=== PATIENT | male | born 1960 | race Caucasian/White ===

== ENCOUNTER 2017-06-16 13:39 | Emergency (ER) | payer OTHER ==
[2017-06-16 13:54] VITALS: BP 120/89
[2017-06-16] MEDS ORDERED: TRAMADOL HCL 50 MG TABLET PO ONE (14:33)
[2017-06-16 14:56] LABS: ABSOLUTE BASOPHILS # (AUTO) 0.1 10^3/uL (0.0-0.2); ABSOLUTE EOSINOPHILS # (AUTO) 0.4 10^3/uL (0.0-0.6); ABSOLUTE LYMPHOCYTES (AUTO) 1.7 10^3/uL (0.5-4.7); ABSOLUTE MONOCYTES (AUTO) 1.1 10^3/uL (0.1-1.4); ABSOLUTE NEUT (AUTO) 8.7 10^3/uL (1.7-8.2); BASOPHILS % (AUTO) 1.2 % (0-2); EOSINOPHILS % (AUTO) 3.6 % (0-6); HEMATOCRIT 41.3 % (37.9-51.0); HEMOGLOBIN 13.4 g/dL (13.5-17.0); HGB HCT DIFFERENCE -1.1; LYMPHOCYTES % (AUTO) 14.2 % (13-45); MEAN CORPUSCULAR HEMOGLOBIN 26.3 pg (27.0-33.4); MEAN CORPUSCULAR HGB CONC 32.4 g/dL (32.0-36.0); MEAN CORPUSCULAR VOLUME 81 fl (80-97); RED BLOOD COUNT 5.11 10^6/uL (4.35-5.55); RED CELL DISTRIBUTION WIDTH 17.6 % (11.5-14.0); WHITE BLOOD COUNT 12.1 10^3/uL (4.0-10.5)
[2017-06-16 15:13] LABS: ALANINE AMINOTRANSFERASE 24 U/L (21-72); ALBUMIN 4.3 g/dL (3.5-5.0); ALKALINE PHOSPHATASE 104 U/L (38-126); ANION GAP 13 (5-19); ASPARTATE AMINO TRANSFERASE 18 U/L (17-59); BILIRUBIN,DIRECT 0.2 mg/dL (0.0-0.4); BILIRUBIN,TOTAL 0.6 mg/dL (0.2-1.3); BLOOD UREA NITROGEN 36 mg/dL (7-20); CALCIUM 9.3 mg/dL (8.4-10.2); CARBON DIOXIDE 30 mmol/L (22-30); CHLORIDE 103 mmol/L (98-107); CREATININE RESULT 1.51 mg/dL (0.52-1.25); GLUCOSE 77 mg/dL (75-110); POTASSIUM 5.4 mmol/L (3.6-5.0); SODIUM 145.9 mmol/L (137-145); TOTAL PROTEIN 7.5 g/dL (6.3-8.2)
--- NOTE | 2017-06-16 15:36 | ER Document Report ---
ED Blood Pressure Problem - General Chief Complaint: Low Blood Pressure Stated Complaint: BLOOD PRESSURE ISSUES Time Seen by Provider: 06/16/17 14:33 Mode of Arrival: Ambulatory Information source: Patient Notes: Patient states that he comes in for 2 reasons. He states that he took his blood pressure at home and that it was 90 systolic. He also states that he has been having some pain in his feet bilaterally. He states he does not have any pain medication at home. He states the pain in his feet is constant and a burning sensation. He states that it is worse with movement and better with rest. It does not radiate. He states he has had some mild weakness. TRAVEL OUTSIDE OF THE [place] IN LAST 30 DAYS: No - Related Data Allergies/Adverse Reactions: lisinopril Allergy (Verified 06/16/17 13:40) simvastatin [From Zocor] Allergy (Verified 06/16/17 13:40) Home Medications: Current Home Medications Atorvastatin Calcium [Lipitor] 80 mg PO QHS 06/16/17 [History] Carvedilol [Carvedilol] 1 tab PO BID 06/16/17 [History] Losartan Potassium [Losartan Potassium] 1 tab PO DAILY 06/16/17 [History] Potassium Chloride [Klor-Con M20] 1 tab PO DAILY 06/16/17 [History] Pregabalin [Lyrica] 1 tab PO BID 06/16/17 [History] Spironolactone [Spironolactone] 1 tab PO DAILY 06/16/17 [History] Ticagrelor [Brilinta] 1 tab PO BID 06/16/17 [History] Torsemide [Demadex 20 mg Tablet] 1 tab PO ASDIR PRN 06/16/17 [History] Past Medical History - General Information source: Patient - Social History Smoking Status: Former Smoker Chew tobacco use (# tins/day): No Frequency of alcohol use: None Drug Abuse: None Family History: Reviewed & Not Pertinent Patient has suicidal ideation: No Patient has homicidal ideation: No - Past Medical History Cardiac Medical History: Reports: Hx Hypertension Endocrine Medical History: Reports: Hx Diabetes Mellitus Type 2 Renal/ Medical History: Denies: Hx Peritoneal Dialysis Past Surgical History: Reports: Hx Appendectomy, Hx Cardiac Surgery - 7 stents Review of Systems - Review of Systems Constitutional: Weakness. denies: Chills, Fever Cardiovascular: denies: Chest pain, Palpitations Respiratory: denies: Cough, Short of breath Gastrointestinal: denies: Diarrhea, Vomiting, Constipation -: Yes All other systems reviewed and negative Physical Exam - Vital signs Vitals: Temp Pulse Resp BP Pulse Ox 99.0 F 77 18 120/89 H 100 06/16/17 13:53 06/16/17 13:53 06/16/17 13:53 06/16/17 13:53 06/16/17 13:53 Interpretation: Normal - General General appearance: Appears well, Alert - HEENT Head: Normocephalic, Atraumatic Eyes: Normal Pupils: PERRL - Respiratory Respiratory status: No respiratory distress Chest status: Nontender Breath sounds: Normal Chest palpation: Normal - Cardiovascular Rhythm: Regular Heart sounds: Normal auscultation Murmur: No - Abdominal Inspection: Normal Distension: No distension Bowel sounds: Normal Tenderness: Nontender Organomegaly: No organomegaly - Back Back: Normal, Nontender - Extremities General upper extremity: Normal inspection, Nontender, Normal color, Normal ROM , Normal temperature General lower extremity: Normal inspection, Nontender, Normal color, Normal ROM , Normal temperature, Normal weight bearing. No: Anayeli's sign - Neurological Neuro grossly intact: Yes Cognition: Normal Orientation: AAOx4 [place] Coma Scale Eye Opening: Spontaneous Harjit Coma Scale Verbal: Oriented [place] Coma Scale Motor: Obeys Commands [place] Coma Scale Total: 15 Speech: Normal Motor strength normal: LUE, RUE, LLE, RLE Sensory: Normal - Psychological Associated symptoms: Normal affect, Normal mood - Skin Skin Temperature: Warm Skin Moisture: Dry Skin Color: Normal Course - Vital Signs Vital signs: Temp Pulse Resp BP Pulse Ox 99.0 F 77 18 120/89 H 100 06/16/17 13:53 06/16/17 13:53 06/16/17 13:53 06/16/17 13:53 06/16/17 13:53 - Laboratory Result Diagrams: 06/16/17 14:42 06/16/17 14:42 Laboratory results interpreted by me: 06/16/17 06/16/17 14:42 14:42 WBC 12.1 H Hgb 13.4 L MCH 26.3 L RDW 17.6 H Absolute Neutrophils 8.7 H Sodium 145.9 H Potassium 5.4 H BUN 36 H Creatinine 1.51 H Est GFR ( Amer) 58 L Est GFR (Non-Af Amer) 48 L Discharge - Discharge Clinical Impression: Foot pain, bilateral, Acute hyperkalemia, Renal insufficiency Condition: Stable Disposition: HOME, SELF-CARE Instructions: Potassium ([facility]), Numbness or Paresthesia ([facility]) Additional Instructions: Your potassium is mildly elevated. These do not take any potassium supplements and to you are rechecked by your doctor. Your kidney function is decreased. Your current creatinine is 1.51. Please have your creatinine rechecked within 1 week by your doctor. Prescriptions: Tramadol HCl [Ultram 50 mg Tablet] 50 mg PO Q6 #12 tab Forms: Return to Work
== END 2017-06-16 15:41 | disposition home or self-care (01) ==
LOC: ER 13:39
DX: M79.671 Pain in right foot (principal); M79.672 Pain in left foot; E87.5 Hyperkalemia; N28.9 Disorder of kidney and ureter, unspecified; I95.9 Hypotension, unspecified; Z79.899 Other long term (current) drug therapy; Z87.891 Personal history of nicotine dependence
CPT/HCPCS: 36415; 80053; 85025; 99284

== ENCOUNTER 2018-01-15 23:50 | Emergency (ER) | payer OTHER ==
--- NOTE | 2018-01-16 00:31 | ER Document Report ---
ED Respiratory Problem - General Mode of Arrival: Ambulatory Information source: Patient TRAVEL OUTSIDE OF THE [place] IN LAST 30 DAYS: No <WEN MENDENHALL - Last Filed: 01/16/18 00:56> <REY WETZEL - Last Filed: 01/16/18 04:47> - General Chief Complaint: Shortness Of Breath Stated Complaint: SHORTNESS OF BREATH Time Seen by Provider: 01/16/18 00:31 Notes: 57-year-old male with hyperlipidemia, coronary artery disease, HI, DM type II, COPD, and hypertension presents today with complaints of shortness of breath for the last 2 weeks, increasing today. Patient states his shortness of breath is exacerbated by lying flat. Patient takes furosemide daily. Patient tried nebulizers prior to arrival which did not relieve his shortness of breath. Patient complains of subjective leg swelling. Patient denies any history of anxiety. (WEN MENDENHALL) - Related Data Allergies/Adverse Reactions: lisinopril Allergy (Verified 06/16/17 13:40) simvastatin [From Zocor] Allergy (Verified 06/16/17 13:40) Past Medical History - General Information source: Patient, [facility] Records - Social History Smoking Status: Former Smoker Cigarette use (# per day): Yes Frequency of alcohol use: None Drug Abuse: None Lives with: Family Family History: Reviewed & Not Pertinent - Past Medical History Cardiac Medical History: Reports: Hx Coronary Artery Disease, Hx Heart Attack, Hx Hypercholesterolemia, Hx Hypertension Pulmonary Medical History: Reports: Hx COPD Neurological Medical History: Reports: Hx Cerebrovascular Accident - Jun 2016 frontal lobe Endocrine Medical History: Reports: Hx Diabetes Mellitus Type 2 - with neuropathy Past Surgical History: Reports: Hx Appendectomy, Hx Cardiac Surgery - 5 stents, 2 revisions, Hx Neurologic Surgery - Lumbar fusion <WEN MENDENHALL - Last Filed: 01/16/18 00:56> Review of Systems - Review of Systems Constitutional: No symptoms reported EENT: No symptoms reported Cardiovascular: No symptoms reported Respiratory: See HPI, Short of breath Gastrointestinal: No symptoms reported Genitourinary: No symptoms reported Male Genitourinary: No symptoms reported Musculoskeletal: See HPI, Leg swelling Skin: No symptoms reported Hematologic/Lymphatic: No symptoms reported Neurological/Psychological: denies: Anxiety -: Yes All other systems reviewed and negative <WEN MENDENHALL - Last Filed: 01/16/18 00:56> Physical Exam <WEN MENDENHALL - Last Filed: 01/16/18 00:56> <REY WETZEL - Last Filed: 01/16/18 04:47> - Vital signs Vitals: Temp Pulse Resp BP Pulse Ox 97.7 F 63 20 143/89 H 100 01/16/18 00:20 01/16/18 00:20 01/16/18 00:20 01/16/18 00:20 01/16/18 00:20 - Notes Notes: Physical Exam: General: Alert, appears well. Standing during exam, states his neuropathy is not as bad if he puts weight on his feet. HEENT: Normocephalic. Atraumatic. PERRL. Extraocular movements intact. Oropharynx clear. Neck: Supple. Non-tender. Respiratory: No respiratory distress, saturating 100% on room air. Clear and equal breath sounds bilaterally. Cardiovascular: Regular rate and rhythm. Abdominal: Normal Inspection. Non-tender. No distension. Normal Bowel Sounds. Back: Non-tender. No deformity or step off. Extremities: Moves all four extremities. Upper extremities: Normal inspection. Normal ROM. Lower extremities: Normal inspection. No edema. Normal ROM. Neurological: Normal cognition. AAOx4. Normal speech. Psychological: Normal affect. Normal Mood. Skin: Warm. Dry. Normal color. (WEN MENDENHALL) Course <WEN MENDENHALL - Last Filed: 01/16/18 00:56> - Laboratory Result Diagrams: 01/16/18 01:03 01/16/18 01:03 - Diagnostic Test Radiology reviewed: Image reviewed, Reports reviewed - No acute cardiopulmonary disease is noted - EKG Interpretation by [facility] EKG shows normal: Sinus rhythm, [place], QRS Complexes. abnormal: Intervals - Borderline prolonged QT interval, ST-T Waves - Nonspecific lateral T abnormalities Rate: Normal - 63 Rhythm: NSR, PVC's [place]/QRS: Left axis deviation When compared to previous EKG there are: Previous EKG unavailable <REY WETZEL - Last Filed: 01/16/18 04:47> - Re-evaluation Re-evalutation: 01/16/18 02:51 Chest x-ray is clear, pulse ox is 100% on room air. Patient does not appear dyspneic. BNP is 11,100, d-dimer is 0.96 01/16/18 04:45 Several attempts for ABG were done by the nurse in a store therapist without success. Patient continues to pace the floor and seems anxious about getting his bandages off, and monitoring leads off. He continues to have 100% O2 saturation on room air. He does agree that his symptoms may be due to anxiety. He does have a lot of discomfort in his feet, he is up all night pacing the floor at home due to the feet discomfort. (REY WETZEL) - Vital Signs Vital signs: Temp Pulse Resp BP Pulse Ox 97.7 F 63 21 H 146/91 H 100 01/16/18 00:20 01/16/18 00:20 01/16/18 03:00 01/16/18 01:01 01/16/18 03:00 - Laboratory Laboratory results interpreted by me: 01/16/18 01/16/18 01/16/18 00:17 01:03 01:03 Hgb 12.1 L Hct 37.3 L MCV 77 L MCH 25.0 L RDW 19.4 H Seg Neutrophils % 83.6 H Lymphocytes % 9.4 L D-Dimer Sodium 145.5 H Carbon Dioxide 31 H BUN 42 H Creatinine 1.46 H Est GFR (Non-Af Amer) 49 L Glucose 214 H Hemoglobin A1c % Direct Bilirubin 0.5 H Creatine Kinase 788 H NT-Pro-B Natriuret Pep Urine Protein 30 H Urine Urobilinogen 2.0 H 01/16/18 01/16/18 01/16/18 01:03 01:03 01:03 Hgb Hct MCV MCH RDW Seg Neutrophils % Lymphocytes % D-Dimer 0.96 H Sodium Carbon Dioxide BUN Creatinine Est GFR (Non-Af Amer) Glucose Hemoglobin A1c % 8.5 H Direct Bilirubin Creatine Kinase NT-Pro-B Natriuret Pep 91012 H Urine Protein Urine Urobilinogen Discharge <WEN MENDENHALL - Last Filed: 01/16/18 00:56> <REY WETZEL - Last Filed: 01/16/18 04:47> - Discharge Clinical Impression: Elevated blood pressure reading, Diabetic peripheral neuropathy Dyspnea Qualifiers: Dyspnea type: unspecified Qualified Code(s): R06.00 - Dyspnea, unspecified Condition: Stable Disposition: HOME, SELF-CARE Additional Instructions: Dyspnea, Nonspecific: You were evaluated for shortness of breath, or dyspnea. Dyspnea has many causes, and some are more serious than others. Sometimes it's impossible to diagnose the cause of dyspnea with the tests that are available on an emergency basis. Based on our evaluation today, you do not need hospitalization now. We found no evidence of pneumonia, collapsed lung, blood clots in the lung, tumors , or heart failure. Causes of non-specific dyspnea can include asthma or bronchospasm, hyperventilation, emotional distress, heart disease, emphysema, fibrosis of the lung, and stiffness of the chest wall. In healthy individuals with a single episode, it's sometimes reasonable to do nothing but wait to see if the problem occurs again. Additional tests used to evaluate dyspnea can include cardiac stress testing, echocardiography, pulmonary function testing, CAT scan of the chest, bronchoscopy or pulmonary biopsy. Return if shortness of breath persists or worsens, or if you develop chest pain, fever, cough, confusion, or fainting. After your evaluation emergency room, I suspect your shortness of breath is most likely related anxiety. Your oxygen saturation on room air remained around 100% all evening. Your blood pressure was a little elevated, but that may be due to the anxiety and being at the emergency room. Be sure to take all of your regular medications on time as prescribed. Take copies of your lab work to see your concrete mixer and your primary care provider. Call your primary care provider to see if you can move up your appointment with him in order to review your lab work and your symptoms you are having. RETURN TO THE EMERGENCY ROOM IF ANY NEW OR WORSENING SYMPTOMS. Referrals: CAL FARMER MD [Primary Care Provider] - Follow up in 3-5 days Scribe Attestation: 01/16/18 00:55 I personally performed the services described in the documentation, reviewed and edited the documentation which was dictated to the scribe in my presence, and it accurately records my words and actions. (REY WETZEL) Scribe Documentation - Scribe Written by Scribe:: Ale Greenberg, 01/16/2018, 0055 acting as scribe for :: Melecio <WEN MENDENHALL - Last Filed: 01/16/18 00:56>
[2018-01-16 01:14] LABS: ABSOLUTE EOSINOPHILS # (AUTO) 0.1 10^3/uL (0.0-0.6); ABSOLUTE LYMPHOCYTES (AUTO) 0.9 10^3/uL (0.5-4.7); ABSOLUTE MONOCYTES (AUTO) 0.6 10^3/uL (0.1-1.4); ABSOLUTE NEUT (AUTO) 7.8 10^3/uL (1.7-8.2); BASOPHILS % (AUTO) 0.3 % (0-2); EOSINOPHILS % (AUTO) 0.6 % (0-6); HEMATOCRIT 37.3 % (37.9-51.0); HEMOGLOBIN 12.1 g/dL (13.5-17.0); LYMPHOCYTES % (AUTO) 9.4 % (13-45); MEAN CORPUSCULAR HGB CONC 32.5 g/dL (32.0-36.0); MEAN CORPUSCULAR VOLUME 77 fl (80-97); MONOCYTES % (AUTO) 6.1 % (3-13); PLATELET COUNT 305 10^3/uL (150-450); RED BLOOD COUNT 4.85 10^6/uL (4.35-5.55); RED CELL DISTRIBUTION WIDTH 19.4 % (11.5-14.0); SEGMENTED NEUTROPHILS % (AUTO) 83.6 % (42-78); TOTAL CELLS COUNTED % (AUTO) 100 %; WHITE BLOOD COUNT 9.3 10^3/uL (4.0-10.5)
--- NOTE | 2018-01-16 01:25 | RADIOLOGY REPORT (SQ) ---
Clinical History : SOB, COPD, EDEMA, CAD , Exam : PA and lateral views of the chest 01/16/2018 12:52 AM CDT Comparisons : none Findings : The lungs are clear without focal consolidation or pleural effusion. The heart is normal in size. The mediastinal contours are normal in appearance. The thoracic spine is age appropriate. The shoulders are unremarkable. Limited evaluation of the upper abdomen demonstrates no gross abnormalities. Impression: No acute cardiopulmonary disease
[2018-01-16 01:30] LABS: APPEARANCE,URINE CLEAR; BILIRUBIN,URINE NEGATIVE (NEGATIVE); COLOR,URINE YELLOW; GLUCOSE, URINE NEGATIVE (NEGATIVE); KETONES,URINE NEGATIVE (NEGATIVE); LEUKOCYTE ESTERASE,URINE NEGATIVE (NEGATIVE); NITRITE,URINE NEGATIVE (NEGATIVE); PROTEIN,URINE 30 mg/dL (NEGATIVE); URINE SPECIFIC GRAVITY 1.011
[2018-01-16 01:35] LABS: ALANINE AMINOTRANSFERASE 38 U/L (21-72); ALBUMIN 4.3 g/dL (3.5-5.0); ALKALINE PHOSPHATASE 118 U/L (38-126); ANION GAP 14 (5-19); ASPARTATE AMINO TRANSFERASE 38 U/L (17-59); BILIRUBIN,DIRECT 0.5 mg/dL (0.0-0.4); BILIRUBIN,TOTAL 1.2 mg/dL (0.2-1.3); BLOOD UREA NITROGEN 42 mg/dL (7-20); CALCIUM 9.3 mg/dL (8.4-10.2); CARBON DIOXIDE 31 mmol/L (22-30); CHLORIDE 101 mmol/L (98-107); CREATINE KINASE 788 U/L (55-170); GLUCOSE 214 mg/dL (75-110); POTASSIUM 4.2 mmol/L (3.6-5.0); SODIUM 145.5 mmol/L (137-145); TOTAL PROTEIN 8.1 g/dL (6.3-8.2)
[2018-01-16 01:47] LABS: NT PRO BNP 11100 pg/mL (5-900)
[2018-01-16 01:55] LABS: TROPONIN I < 0.012 ng/mL
[2018-01-16 05:04] VITALS: BP 165/97
--- NOTE | 2018-01-16 09:43 | EKG REPORT ---
SEVERITY:- ABNORMAL ECG - SINUS RHYTHM VENTRICULAR PREMATURE COMPLEX BORDERLINE LEFT AXIS DEVIATION NONSPECIFIC T ABNORMALITIES, LATERAL LEADS BORDERLINE PROLONGED QT INTERVAL : Confirmed by: Monica Douglas 16-Jan-2018 09:43:24
== END 2018-01-16 05:03 | disposition home or self-care (01) ==
LOC: ER 23:50
DX: I10 Essential (primary) hypertension (principal); E11.42 Type 2 diabetes mellitus with diabetic polyneuropathy; I25.10 Atherosclerotic heart disease of native coronary artery without angina pectoris; E78.5 Hyperlipidemia, unspecified; J44.9 Chronic obstructive pulmonary disease, unspecified; R94.31 Abnormal electrocardiogram [ECG] [EKG]; I25.2 Old myocardial infarction; Z87.891 Personal history of nicotine dependence; Z86.73 Personal history of transient ischemic attack (TIA), and cerebral infarction without residual deficits; Z95.5 Presence of coronary angioplasty implant and graft
CPT/HCPCS: 36415; 71046; 80053; 81001; 82550; 83036; 83880; 84484; 85025; 85379; 93005; 93010; 99285

== ENCOUNTER 2018-02-27 20:12 | Emergency (ER) | payer OTHER ==
[2018-02-27] MEDS ORDERED: PREDNISONE 20 MG TABLET PO ONE (21:34)
[2018-02-27] MEDS ORDERED: OXYCODONE-ACETAMINOPHEN 5-325 MG TABLET PO ONE (21:34)
--- NOTE | 2018-02-27 21:39 | ER Document Report ---
ED Extremity Problem, Lower - General Chief Complaint: Foot Pain Stated Complaint: FOOT PAIN Time Seen by Provider: 02/27/18 21:24 Notes: Patient is a 57-year-old male with a history of gout that comes to the emergency department for chief complaint of pain, redness, and slight swelling in his left foot near the fifth toe for the past 3 days. Patient admits to having multiple meals with shellfish, denies alcohol, denies red meat. He is on allopurinol he believes for gout, has not had a flare in a while, denies fever, denies injury. He states that when he gets gout he always gets it in the left foot in this location or in the left wrist. He denies any other complaints. Past medical history includes type 2 diabetes, CAD, hypertension. TRAVEL OUTSIDE OF THE [place] IN LAST 30 DAYS: No - Related Data Allergies/Adverse Reactions: lisinopril Allergy (Verified 02/27/18 20:12) simvastatin [From Zocor] Allergy (Verified 02/27/18 20:12) Past Medical History - General Information source: Patient - Social History Smoking Status: Current Every Day Smoker Frequency of alcohol use: None Drug Abuse: None Lives with: Family Family History: Reviewed & Not Pertinent Patient has suicidal ideation: No Patient has homicidal ideation: No - Past Medical History Cardiac Medical History: Reports: Hx Congestive Heart Failure, Hx Coronary Artery Disease, Hx Heart Attack, Hx Hypercholesterolemia, Hx Hypertension Pulmonary Medical History: Reports: Hx COPD Neurological Medical History: Reports: Hx Cerebrovascular Accident - Jun 2016 frontal lobe Endocrine Medical History: Reports: Hx Diabetes Mellitus Type 2 - with neuropathy Renal/ Medical History: Denies: Hx Peritoneal Dialysis Past Surgical History: Reports: Hx Appendectomy, Hx Cardiac Surgery - 5 stents, 2 revisions, Hx Neurologic Surgery - Lumbar fusion Review of Systems - Review of Systems Constitutional: No symptoms reported EENT: No symptoms reported Cardiovascular: No symptoms reported Respiratory: No symptoms reported Gastrointestinal: No symptoms reported Genitourinary: No symptoms reported Male Genitourinary: No symptoms reported Musculoskeletal: See HPI Skin: See HPI Hematologic/Lymphatic: No symptoms reported Neurological/Psychological: No symptoms reported Physical Exam - Vital signs Vitals: Temp Pulse BP Pulse Ox 98.3 F 75 130/68 H 100 02/27/18 20:36 02/27/18 20:36 02/27/18 20:36 02/27/18 20:36 - Notes Notes: GENERAL: Alert, interacts well. No acute distress. HEAD: Normocephalic, atraumatic. EYES: Pupils equal, round, and reactive to light. Extraocular movements intact. ENT: Oral mucosa moist, tongue midline. NECK: Full range of motion. Supple. Trachea midline. LUNGS: Clear to auscultation bilaterally, no wheezes, rales, or rhonchi. No respiratory distress. HEART: Regular rate and rhythm. No murmur ABDOMEN: Soft, non-tender. Non-distended. Bowel sounds present in all 4 quadrants. EXTREMITIES: There is tenderness with warmth and questionable small amount of swelling, noted over the dorsum of the foot and over the lateral aspect near the fifth digit, no open wounds, no induration or fluctuance, no severe erythema , normal capillary refill and sensation, unremarkable extremity exam otherwise. BACK: no cervical, thoracic, lumbar midline tenderness. No saddle anesthesia, normal distal neurovascular exam. NEUROLOGICAL: Alert and oriented x3. Normal speech. [cranial nerves II through XII grossly intact]. PSYCH: Normal affect, normal mood. SKIN: Warm, dry, normal turgor. No rashes or lesions noted. Course - Re-evaluation Re-evalutation: Presentation, history, examination are consistent with gout, patient usually gets gout in this location. No fever, no signs of infection or injury on exam. Patient is unsure how he has been treated for gout flares in the past because it has been a while, after discussion decision was made to place patient on prednisone, pain medication, instructed him to avoid carbohydrates, discussed close follow-up and return precautions in detail. Patient states satisfaction and agreement with plan. - Vital Signs Vital signs: Temp Pulse Resp BP Pulse Ox 98.1 F 68 18 137/84 H 100 02/27/18 22:03 02/27/18 22:03 02/27/18 22:03 02/27/18 22:03 02/27/18 22:03 Discharge - Discharge Clinical Impression: Left foot pain Gout Qualifiers: Gout site: foot Gout etiology: other secondary cause Chronicity: acute Laterality: left Qualified Code(s): M10.472 - Other secondary gout, left ankle and foot Condition: Stable Disposition: HOME, SELF-CARE Additional Instructions: Your examination is consistent with gout, most likely from recent consumption of shellfish. Continue current medications, take prednisone and pain medication as prescribed, follow closely with your primary care. Avoid carbohydrates (bread, sugars, etc.) while taking prednisone as this can elevate your blood sugar. Return if you worsen including swelling, spreading redness, increased pain, fever, etc. Prescriptions: Oxycodone HCl/Acetaminophen [Percocet 5-325 mg Tablet] 1 - 2 tab PO Q4H PRN #12 tablet PRN Reason: Prednisone [Deltasone 10 mg Tablet] 10 mg PO ASDIR PRN #21 tablet PRN Reason: Referrals: CAL FARMER MD [Primary Care Provider] - Follow up as needed
[2018-02-27 22:04] VITALS: BP 137/84
== END 2018-02-27 22:06 | disposition home or self-care (01) ==
LOC: ER 20:12
DX: M10.472 Other secondary gout, left ankle and foot (principal); M79.672 Pain in left foot; Z79.899 Other long term (current) drug therapy; F17.200 Nicotine dependence, unspecified, uncomplicated; E11.9 Type 2 diabetes mellitus without complications; I25.10 Atherosclerotic heart disease of native coronary artery without angina pectoris; I10 Essential (primary) hypertension
CPT/HCPCS: 99283; J7512

== ENCOUNTER → 2018-04-12 | Outpatient (CLI) | payer OTHER ==
--- NOTE | 2018-04-12 15:11 | RADIOLOGY REPORT (SQ) ---
EXAM DESCRIPTION: FOOT LEFT COMPLETE COMPLETED DATE/TIME: 04/12/2018 2:42 pm REASON FOR STUDY: NON PRESSURE ULCER LEFT FOOT NECROSIS OF BONE E11.621 TYPE 2 DIABETES MELLITUS WI TH FOOT ULCER L97.524 NON-PRS CHRONIC ULCER OTH PRT LEFT FOOT W NECROSIS O COMPARISON: 03/02/2008 left foot films 03/03/2008, MRI left foot NUMBER OF VIEWS: Three views. TECHNIQUE: AP, lateral and oblique radiographic images acquired of the left foot. LIMITATIONS: None. FINDINGS: MINERALIZATION: Overall normal bone density BONES: Post transmetatarsal amputation of the left 3rd toe. Minimal new bone formation at the distal end of the 3rd metatarsal osteotomy. No fracture. No aggressive demineralization or periosteal new bone worrisome for 2nd or 4th metatarsal osteomyelit is. JOINTS: Soft tissue air in the forefoot at the level of the 3rd MTP joint. Diffuse forefoot soft tis jeremiah swelling SOFT TISSUES: No soft tissue swelling. No foreign body. OTHER: No other significant finding. IMPRESSION: Post transmetatarsal amputation of the left 3rd toe. Appropriate minimal new bone forma tion at the distal end of the 3rd metatarsal osteotomy. No aggressive demineralization or periosteal new bone worrisome for 2nd or 4th metatarsal osteomyelitis Diffuse forefoot soft tissue swelling is present with soft tissue gas in the surgical bed TECHNICAL DOCUMENTATION: JOB ID: [id number] [employer]- All Rights Reserved Reading location - IP/workstation name: [email or web address]
[2018-04-12 15:19] LABS: ABSOLUTE LYMPHOCYTES (AUTO) 0.7 10^3/uL (0.5-4.7); ABSOLUTE MONOCYTES (AUTO) 0.8 10^3/uL (0.1-1.4); ABSOLUTE NEUT (AUTO) 8.1 10^3/uL (1.7-8.2); BASOPHILS % (AUTO) 0.3 % (0-2); EOSINOPHILS % (AUTO) 0.5 % (0-6); HEMATOCRIT 29.8 % (37.9-51.0); HEMOGLOBIN 9.6 g/dL (13.5-17.0); LYMPHOCYTES % (AUTO) 6.8 % (13-45); MEAN CORPUSCULAR HEMOGLOBIN 25.4 pg (27.0-33.4); MEAN CORPUSCULAR HGB CONC 32.2 g/dL (32.0-36.0); MEAN CORPUSCULAR VOLUME 79 fl (80-97); MONOCYTES % (AUTO) 8.3 % (3-13); PLATELET COUNT 425 10^3/uL (150-450); RED BLOOD COUNT 3.78 10^6/uL (4.35-5.55); RED CELL DISTRIBUTION WIDTH 21.4 % (11.5-14.0); SEGMENTED NEUTROPHILS % (AUTO) 84.1 % (42-78); TOTAL CELLS COUNTED % (AUTO) 100 %; WHITE BLOOD COUNT 9.7 10^3/uL (4.0-10.5)
[2018-04-12 15:48] LABS: ALANINE AMINOTRANSFERASE 896 U/L (21-72); ALBUMIN 3.3 g/dL (3.5-5.0); ALKALINE PHOSPHATASE 256 U/L (38-126); ANION GAP 13 (5-19); BILIRUBIN,DIRECT 1.9 mg/dL (0.0-0.4); BILIRUBIN,TOTAL 2.6 mg/dL (0.2-1.3); BLOOD UREA NITROGEN 58 mg/dL (7-20); C-REACTIVE PROTEIN 67.8 mg/L (<10.0); CALCIUM 8.8 mg/dL (8.4-10.2); CARBON DIOXIDE 27 mmol/L (22-30); CHLORIDE 100 mmol/L (98-107); GLUCOSE 188 mg/dL (75-110); POTASSIUM 5.6 mmol/L (3.6-5.0); SODIUM 139.8 mmol/L (137-145); TOTAL PROTEIN 6.9 g/dL (6.3-8.2)
[2018-04-12 16:02] LABS: ERYTHROCYTE SEDIMENTATION RATE 66 mm/hr (0-20)
[2018-04-12 16:08] LABS: ASPARTATE AMINO TRANSFERASE 1996 U/L (17-59)
== END ==
LOC: OD 14:13
PROVIDERS: ATTEND Preventive Medicine Undersea and Hyperbaric Medicine
DX: E11.621 Type 2 diabetes mellitus with foot ulcer (principal); L97.524 Non-pressure chronic ulcer of other part of left foot with necrosis of bone
CPT/HCPCS: 36415; 80053; 83036; 85025; 85652; 86140

== ENCOUNTER → 2018-05-04 | Outpatient (CLI) | payer OTHER ==
[2018-05-04 10:52] LABS: ABSOLUTE BASOPHILS # (AUTO) 0.1 10^3/uL (0.0-0.2); ABSOLUTE EOSINOPHILS # (AUTO) 0.5 10^3/uL (0.0-0.6); ABSOLUTE LYMPHOCYTES (AUTO) 0.8 10^3/uL (0.5-4.7); ABSOLUTE NEUT (AUTO) 6.9 10^3/uL (1.7-8.2); BASOPHILS % (AUTO) 0.6 % (0-2); EOSINOPHILS % (AUTO) 5.7 % (0-6); HEMOGLOBIN 8.8 g/dL (13.5-17.0); LYMPHOCYTES % (AUTO) 8.6 % (13-45); MEAN CORPUSCULAR HEMOGLOBIN 26.3 pg (27.0-33.4); MEAN CORPUSCULAR HGB CONC 32.7 g/dL (32.0-36.0); MEAN CORPUSCULAR VOLUME 80 fl (80-97); MONOCYTES % (AUTO) 10.9 % (3-13); PLATELET COUNT 145 10^3/uL (150-450); RED BLOOD COUNT 3.35 10^6/uL (4.35-5.55); RED CELL DISTRIBUTION WIDTH 23.1 % (11.5-14.0); SEGMENTED NEUTROPHILS % (AUTO) 74.2 % (42-78); TOTAL CELLS COUNTED % (AUTO) 100 %; WHITE BLOOD COUNT 9.2 10^3/uL (4.0-10.5)
[2018-05-04 11:13] LABS: ALANINE AMINOTRANSFERASE 29 U/L (21-72); ALBUMIN 3.2 g/dL (3.5-5.0); ALKALINE PHOSPHATASE 93 U/L (38-126); ANION GAP 12 (5-19); ASPARTATE AMINO TRANSFERASE 24 U/L (17-59); BILIRUBIN,DIRECT 0.9 mg/dL (0.0-0.4); BILIRUBIN,TOTAL 1.4 mg/dL (0.2-1.3); BLOOD UREA NITROGEN 39 mg/dL (7-20); C-REACTIVE PROTEIN 30.6 mg/L (<10.0); CALCIUM 8.5 mg/dL (8.4-10.2); CARBON DIOXIDE 28 mmol/L (22-30); CHLORIDE 105 mmol/L (98-107); GLUCOSE 128 mg/dL (75-110); POTASSIUM 4.5 mmol/L (3.6-5.0); SODIUM 145.3 mmol/L (137-145); TOTAL PROTEIN 6.5 g/dL (6.3-8.2)
[2018-05-04 11:32] LABS: ERYTHROCYTE SEDIMENTATION RATE 42 mm/hr (0-20)
--- NOTE | 2018-05-04 13:39 | RADIOLOGY REPORT (SQ) ---
EXAM DESCRIPTION: FOOT LEFT COMPLETE COMPLETED DATE/TIME: 05/04/2018 10:00 am REASON FOR STUDY: NON PRESSURE ULCER LEFT FOOT WITH NECROSIS OF BONE E11.621 TYPE 2 DIABETES MELLIT US WITH FOOT ULCER L97.524 NON-PRS CHRONIC ULCER OTH PRT LEFT FOOT W NECROSIS O COMPARISON: 04/12/2018. NUMBER OF VIEWS: Three views. TECHNIQUE: AP, lateral and oblique radiographic images acquired of the left foot. LIMITATIONS: None. FINDINGS: MINERALIZATION: Normal. BONES: No acute fracture or dislocation. Previous mid metatarsal amputation of the 3rd toe No worris ome bone lesions. JOINTS: No effusions. SOFT TISSUES: Stable soft tissue swelling with gas in the dorsal soft tissues at the surgical site. No foreign body. OTHER: No other significant finding. IMPRESSION: STABLE APPEARANCE. PREVIOUS MID METATARSAL AMPUTATION OF THE 3RD TOE WITH GENERALIZED S OFT TISSUE SWELLING AND SOFT TISSUE GAS. NO ACUTE BONY FINDINGS. TECHNICAL DOCUMENTATION: JOB ID: [id number] [employer]- All Rights Reserved Reading location - IP/workstation name: [email or web address]
== END ==
LOC: WC 09:35
PROVIDERS: ATTEND Preventive Medicine Undersea and Hyperbaric Medicine
DX: E11.621 Type 2 diabetes mellitus with foot ulcer (principal); L97.524 Non-pressure chronic ulcer of other part of left foot with necrosis of bone; Z89.422 Acquired absence of other left toe(s)
CPT/HCPCS: 36415; 80053; 83036; 85025; 85652; 86140

== ENCOUNTER 2018-06-02 06:50 | Day surgery (SDC) | payer OTHER ==
[~2018-06-02 06:50] MED LIST: TOBRAMYCIN SULFATE INJ 1.2 GM PWDR VIAL MC PRN
[2018-06-02] MEDS ORDERED: LIDOCAINE 2% INJ-PF (20 MG/ML) 10 ML AMPUL ONE (07:01)
[2018-06-02] MEDS ORDERED: MIDAZOLAM 2 MG/2 ML INJ ONE (07:01)
[2018-06-02] MEDS ORDERED: FENTANYL CITRATE INJ/PF 100 MCG/2 ML AMPUL ONE (07:01)
[2018-06-02] MEDS ORDERED: PROPOFOL INJ 200 MG/20 ML VIAL IV ONE (07:02)
[2018-06-02] MEDS ORDERED: ACETAMINOPHEN 1,000 MG/100 ML RTUPB IV ONE (07:02)
[2018-06-02] MEDS ORDERED: POLYMYXIN B SULFATE INJ 500000 UNIT VIAL ONE (07:14)
[2018-06-02] MEDS ORDERED: LIDOCAINE 2% INJ (20 MG/ML) 20 ML MDV ONE (07:14)
[2018-06-02] MEDS ORDERED: BUPIVACAINE HCL 0.5 % INJ/PF 30 ML SDV ONE (07:14)
[2018-06-02] MEDS ORDERED: NORMAL SALINE INJ/PF 0.9% 10 ML SDV ONE (07:14)
[2018-06-02] MEDS ORDERED: LIDOCAINE 1%/EPINEPHRINE INJ 20 ML VIAL ONE (07:14)
[2018-06-02] MEDS ORDERED: BACITRACIN INJ 50,000 UNIT VIAL ONE (07:15)
[2018-06-02] MEDS ORDERED: WATER FOR INJECTION,STERILE 10 ML SDV ONE (07:17)
[2018-06-02] MEDS ORDERED: CEFAZOLIN 1 GM/D5W RTU 1 GM/50 ML RTUPB IV PRN (07:30)
--- NOTE | 2018-06-02 10:47 | SURGICARE OPERATIVE REPORT E ---
[facility] Operative Report NAME: KAEL FIGUEROA AGE: 57Y DATE OF SURGERY: 06/02/2018 ROOM: PREOPERATIVE DIAGNOSIS: Osteomyelitis of the second toe and second metatarsal of the left foot. POSTOPERATIVE DIAGNOSIS: Osteomyelitis of the second toe and second metatarsal of the left foot. PROCEDURE PERFORMED: Amputation of the second toe with partial resection of the second metatarsal and debridement of wound. SURGEON: HALLE CANALES DPM PROJECT MANAGEMENT CONSULTANT: Claudia Naik DPM PROCEDURE: On 06/02/2018 the patient was admitted to [facility] with complaints of infected left foot. The patient was taken to the operating room where following the induction of administration of regional and local anesthesia the patient's left foot and leg were prepped and draped in the a sterile manner. A tourniquet was placed on the proximal ankle malleoli. Attention was then directed to the patient's left foot. There was noted to be a granulating wound from a prior amputation, Third toe and third ray resection which was healing very well By secondary intention and wound granulation. There was noted to be an open plantar ulceration of the second toe. The second toe was quite edematous. Fluoroscopic study revealed bony destruction of the base of the proximal phalanx and nearly complete loss of the second metatarsal head. An incision was made into the lateral aspect of the third toe. It was carried circumferentially around the toe at the level of the proximal interphalangeal joint. The distal portion of the toe was disarticulated and removed from the field. The proximal phalanx was dissected free from its soft tissue attachments and likewise removed from the wound en toto, bringing in view the second metatarsal head. Dissection was further carried proximally to the proximal mid shaft of the second metatarsal which was then osteotomized with bone-cutting forceps and at the mid shaft. Fluoroscopic studies were obtained for guidance of the osteotomy. The distal portion of the second metatarsal was removed from the wound en toto. The area was flushed with sterile saline. New instrumentation was obtained and utilizing a rongeur a portion of the remaining stump of the second metatarsal was debrided and the specimen sent for bone culture. The second metatarsal was further debrided, rasped, and smoothed as needed. At that time further dissection was carried out, removing all necrotic and grossly infected tissue. All bleeding vessels were clamped, ligated, and Bovied as necessary for hemostasis. Tobramycin Impregnated Osteoset beads were then made on the back table. Antibiotic solution was then Mixed. The wound was flushed with copious amounts of sterile antibiotic solution. There was some oozing and Surgifoam was placed into the wound and compression was applied for approximately 5 minutes. Surgifoam was removed and the remaining bleeding vessels were ligated as necessary for hemostasis. Then, 1% lidocaine with epinephrine was likewise injected in the periwound for hemostasis. It was felt that bleeding was adequately controlled at this time. The antibiotic beads were placed into the wound. Surgifoam was placed over the antibiotic beads and the wound was then closed with a combination of simple and vertical mattress suture of 3-0 nylon. Only 80% of the wound could be closed primarily, due to contractures and the prior wound from the previous third ray resection. At that time the sterile dressing consisting of Acticoat Flex was applied to the incision, and 4 x 4's, Conform, Kerlix, and Coban was applied to the patient's left foot. The patient appeared to tolerate surgery and anesthesia well and left the OR in fair condition with all vital signs stable, and he was taken to the recovery room for further monitoring by Anesthesia Department. The patient will be followed with wound VAC and wound care at the [facility] and receive hyperbaric oxygen therapy. DICTATING PHYSICIAN: HALLE CANALES DPM [id number] PHY#: [id number] ID: [id number] JOB#: [id number] ACCT: [id number] cc:HALLE CANALES DPM > [facility]
--- NOTE | 2018-06-02 11:37 | RADIOLOGY REPORT (SQ) ---
EXAM DESCRIPTION: NO CHG FLUORO; FOOT LEFT 2 VIEWS COMPLETED DATE/TIME: 06/02/2018 10:08 am REASON FOR STUDY: AMPUTATION 2ND DIGIT,PARTIAL 2ND METATARSAL RESECTION LEFT FOOT L03.116 CELLULIT IS OF LEFT LOWER LIMB M86.172 OTHER ACUTE OSTEOMYELITIS, LEFT ANKLE AND FOOT COMPARISON: None. FLUOROSCOPY TIME: 11 seconds 2 images saved to PACS. TECHNIQUE: Intra-operative images acquired during surgical procedure to evaluate progress. NUMBER OF IMAGES: 2 LIMITATIONS: None. FINDINGS: Selected images from osteotomy 2nd metatarsal performed in the operating room. IMPRESSION: IMAGE(S) OBTAINED DURING PROCEDURE. COMMENT: Quality ID 145: Final reports for procedures using fluoroscopy that document radiation exp osure indices, or exposure time and number of fluorographic images (if radiation exposure indices are not available) Please consult full operative report of the attending physician for description of the procedure. TECHNICAL DOCUMENTATION: JOB ID: [id number] [employer]- All Rights Reserved Reading location - IP/workstation name: [email or web address]
--- NOTE | 2018-06-02 11:37 | RADIOLOGY REPORT (SQ) ---
EXAM DESCRIPTION: NO CHG FLUORO; FOOT LEFT 2 VIEWS COMPLETED DATE/TIME: 06/02/2018 10:08 am REASON FOR STUDY: AMPUTATION 2ND DIGIT,PARTIAL 2ND METATARSAL RESECTION LEFT FOOT L03.116 CELLULIT IS OF LEFT LOWER LIMB M86.172 OTHER ACUTE OSTEOMYELITIS, LEFT ANKLE AND FOOT COMPARISON: None. FLUOROSCOPY TIME: 11 seconds 2 images saved to PACS. TECHNIQUE: Intra-operative images acquired during surgical procedure to evaluate progress. NUMBER OF IMAGES: 2 LIMITATIONS: None. FINDINGS: Selected images from osteotomy 2nd metatarsal performed in the operating room. IMPRESSION: IMAGE(S) OBTAINED DURING PROCEDURE. COMMENT: Quality ID 145: Final reports for procedures using fluoroscopy that document radiation exp osure indices, or exposure time and number of fluorographic images (if radiation exposure indices are not available) Please consult full operative report of the attending physician for description of the procedure. TECHNICAL DOCUMENTATION: JOB ID: [id number] [employer]- All Rights Reserved Reading location - IP/workstation name: [email or web address]
== END 2018-06-02 11:14 | disposition home or self-care (01) ==
LOC: SC 06:50
PROVIDERS: ATTEND Preventive Medicine Undersea and Hyperbaric Medicine
DX: M86.172 Other acute osteomyelitis, left ankle and foot (principal); E11.9 Type 2 diabetes mellitus without complications; I25.2 Old myocardial infarction; Z79.899 Other long term (current) drug therapy; J44.9 Chronic obstructive pulmonary disease, unspecified; Z79.84 Long term (current) use of oral hypoglycemic drugs; Z86.73 Personal history of transient ischemic attack (TIA), and cerebral infarction without residual deficits; M19.90 Unspecified osteoarthritis, unspecified site; Z88.8 Allergy status to other drugs, medicaments and biological substances; Z79.82 Long term (current) use of aspirin; Z79.51 Long term (current) use of inhaled steroids; Z79.891 Long term (current) use of opiate analgesic; I11.0 Hypertensive heart disease with heart failure; I50.9 Heart failure, unspecified; M10.9 Gout, unspecified
CPT/HCPCS: 82962; 87070 ×3; 87205; 87075; 73620; 28810; C1713; J2250; J3490 ×6; J0690; J3010; J2704; J0131; J3260; 01480

== ENCOUNTER 2018-07-08 14:27 | Emergency (ER) | payer OTHER ==
[2018-07-08] MEDS ORDERED: HYDROCODONE/ACETAMINOPHEN 5-325 MG TABLET PO ONE (15:36)
--- NOTE | 2018-07-08 15:38 | ER Document Report ---
HPI - HPI Patient complains to provider of: Right arm pain Time Seen by Provider: 07/08/18 15:25 Onset: This morning Onset/Duration: Gradual Quality of pain: Achy Pain Level: 2 Context: Patient states that he woke up this morning at 7 AM on the floor after apparently rolling out of bed at some point during the night. Patient states he was laying on his right arm underneath him. Patient complains of right wrist elbow and shoulder pain. Patient is right-hand dominant. Patient denies any head injury. Patient denies any other injury from falling out of his bed. Patient states his bed is only about 3 foot high. Associated Symptoms: Other - Right upper extremity pain Exacerbated by: Movement Relieved by: Denies Similar symptoms previously: No Recently seen / treated by doctor: No - ROS ROS below otherwise negative: Yes Systems Reviewed and Negative: Yes All other systems reviewed and negative - CONSTITUTIONAL Constitutional: DENIES: Fever, Chills - NEURO Neurology: DENIES: Headache, Weakness - GASTROINTESTINAL Gastrointestinal: DENIES: Nausea, Patient vomiting - REPRODUCTIVE Reproductive: DENIES: : - MUSCULOSKELETAL Musculoskeletal: REPORTS: Extremity pain - right arm, Swelling - Right hand, right elbow, right wrist. DENIES: Back Pain, Neck Pain - DERM Skin Color: Normal Skin Problems: None Past Medical History - General Information source: Patient - Social History Smoking Status: Current Every Day Smoker Frequency of alcohol use: None Drug Abuse: None Occupation: None Family History: Reviewed & Not Pertinent Patient has suicidal ideation: No Patient has homicidal ideation: No - Past Medical History Cardiac Medical History: Reports: Hx Congestive Heart Failure, Hx Coronary Artery Disease - Status post 7 stents placed, last on June 2016, Hx Heart Attack, Hx Hypercholesterolemia, Hx Hypertension Pulmonary Medical History: Reports: Hx COPD Denies: Hx Asthma, Hx Bronchitis Neurological Medical History: Reports: Hx Cerebrovascular Accident - Jun 2016 frontal lobe. Denies: Hx Seizures Endocrine Medical History: Reports: Hx Diabetes Mellitus Type 2 Renal/ Medical History: Denies: Hx Benign Prostatic Hyperplasia, Hx Peritoneal Dialysis GI Medical History: Denies: Hx Hepatitis, Hx Hiatal Hernia, Hx Ulcer Musculoskeletal Medical History: Denies Hx Arthritis, Reports Hx Gout Infectious Medical History: Denies: Hx Hepatitis Past Surgical History: Reports: Hx Appendectomy, Hx Cardiac Catheterization, Hx Cardiac Surgery - 5 stents, 2 revisions, Hx Neurologic Surgery - Lumbar fusion, Hx Orthopedic Surgery - toe amputation x2. Denies: Hx Open Heart Surgery, Hx Pacemaker - Immunizations Hx Diphtheria, Pertussis, Tetanus Vaccination: Yes Vertical Provider Document - CONSTITUTIONAL Agree With Documented VS: Yes Exam Limitations: No Limitations General Appearance: WD/WN, No Apparent Distress, Other - Pale - INFECTION CONTROL TRAVEL OUTSIDE OF THE [place] IN LAST 30 DAYS: No - HEENT HEENT: Atraumatic, Normocephalic - NECK Neck: Normal Inspection, Supple - RESPIRATORY Respiratory: Breath Sounds Normal, No Respiratory Distress - CARDIOVASCULAR Cardiovascular: Regular Rate, Regular Rhythm Pulses: Normal: Radial - BACK Back: Normal Inspection - MUSCULOSKELETAL/EXTREMETIES Musculoskeletal/Extremeties: MAEW, Tender - Tenderness with range of motion to right shoulder, right elbow and right wrist, Edema - 2+ edema to right elbow and right wrist - NEURO Level of Consciousness: Awake, Alert, Appropriate Motor/Sensory: No Motor Deficit - DERM Integumentary: Warm, Dry Notes: Mild erythema over right wrist Course - Re-evaluation Re-evalutation: 07/08/18 16:54 Dr Chiu to bedside for examination and suspects gout flare. Pt does admit to eating shrimp last night, and states that he has had symptoms similar to this with gout flareups in the past. No concern for septic arthritis, shoulder dislocation or any fracture to the right upper extremity. No concern for rhabdomyolysis. We will treat patient's gout flareup with steroids and pain medication at this time given history of renal insufficiency and diabetes. 07/08/18 20:44 - Vital Signs Vital signs: Temp Pulse Resp BP Pulse Ox 98.0 F 64 20 138/70 H 100 07/08/18 14:32 07/08/18 14:32 07/08/18 14:32 07/08/18 14:32 07/08/18 14:32 Discharge - Discharge Clinical Impression: Right arm pain Fall Qualifiers: Encounter type: initial encounter Qualified Code(s): W19.XXXA - Unspecified fall, initial encounter Gout flare Qualifiers: Gout site: multiple sites Gout etiology: unspecified cause Qualified Code(s): M10.9 - Gout, unspecified Condition: Stable Disposition: HOME, SELF-CARE Instructions: Gout ([facility]), Gout Diet ([facility]), Oral Narcotic Medication ([facility]), Steroid Medication Additional Instructions: Return immediately for any new or worsening symptoms Followup with your primary care provider, call tomorrow to make a followup appointment You should eat a gout diet, avoid shellfish as this can cause flareups of your gout. Prescriptions: Hydrocodone/Acetaminophen [[place] 5-325 mg Tablet] 1 tab PO Q6 PRN #12 tablet PRN Reason: Prednisone [Deltasone 20 mg Tablet] 2 tab PO DAILY 5 Days tablet Referrals: DARIUS WHITLOCK MD [ACTIVE STAFF] - Follow up as needed JACKSON WILLINGHAM MD [Primary Care Provider] - Follow up tomorrow
--- NOTE | 2018-07-08 16:27 | RADIOLOGY REPORT (SQ) ---
EXAM DESCRIPTION: ELBOW RIGHT OVER 2 VIEWS COMPLETED DATE/TIME: 07/08/2018 4:15 pm REASON FOR STUDY: fall out of bed, RUE pain COMPARISON: None. NUMBER OF VIEWS: Four views. TECHNIQUE: AP, lateral, and both oblique radiographic images acquired of the right elbow. LIMITATIONS: None. FINDINGS: MINERALIZATION: Normal. BONES: No acute fracture or dislocation. No worrisome bone lesions. JOINT: No effusion. SOFT TISSUES: No soft tissue swelling. No foreign body. OTHER: No other significant finding. IMPRESSION: NEGATIVE STUDY OF THE RIGHT ELBOW. NO RADIOGRAPHIC EVIDENCE OF ACUTE INJURY. TECHNICAL DOCUMENTATION: JOB ID: [id number] [employer]- All Rights Reserved Reading location - IP/workstation name: [email or web address]
--- NOTE | 2018-07-08 16:27 | RADIOLOGY REPORT (SQ) ---
EXAM DESCRIPTION: WRIST RIGHT 3 VIEWS COMPLETED DATE/TIME: 07/08/2018 4:15 pm REASON FOR STUDY: fall out of bed, RUE pain COMPARISON: None. NUMBER OF VIEWS: Three views. TECHNIQUE: AP, lateral, and oblique radiographic images acquired of the right wrist. LIMITATIONS: None. FINDINGS: MINERALIZATION: Normal. BONES: No acute fracture or dislocation. No worrisome bone lesions. Normal alignment. SOFT TISSUES: No soft tissue swelling. No foreign body. OTHER: No other significant finding. IMPRESSION: NEGATIVE STUDY OF THE RIGHT WRIST. NO RADIOGRAPHIC EVIDENCE OF ACUTE INJURY. TECHNICAL DOCUMENTATION: JOB ID: [id number] [employer]- All Rights Reserved Reading location - IP/workstation name: [email or web address]
--- NOTE | 2018-07-08 16:27 | RADIOLOGY REPORT (SQ) ---
EXAM DESCRIPTION: FOREARM RIGHT COMPLETED DATE/TIME: 07/08/2018 4:15 pm REASON FOR STUDY: fall from bed COMPARISON: None. NUMBER OF VIEWS: Two views. TECHNIQUE: Two radiographic images acquired of the right forearm, including elbow and wrist in at le ast one projection. LIMITATIONS: None. FINDINGS: MINERALIZATION: Normal. BONES: No acute fracture. No worrisome bone lesions. SOFT TISSUES: No obvious swelling or foreign body. OTHER: No other significant finding. IMPRESSION: NEGATIVE STUDY OF THE RIGHT FOREARM. NO RADIOGRAPHIC EVIDENCE OF ACUTE INJURY. TECHNICAL DOCUMENTATION: JOB ID: [id number] [employer]- All Rights Reserved Reading location - IP/workstation name: [email or web address]
--- NOTE | 2018-07-08 16:28 | RADIOLOGY REPORT (SQ) ---
EXAM DESCRIPTION: SHOULDER RIGHT 2 OR MORE VIEWS COMPLETED DATE/TIME: 07/08/2018 4:15 pm REASON FOR STUDY: fall out of bed, RUE pain COMPARISON: None. NUMBER OF VIEWS: Three views. TECHNIQUE: Internal rotation, external rotation, and Y view images acquired of the right shoulder. LIMITATIONS: None. FINDINGS: MINERALIZATION: Normal. BONES: No acute fracture or dislocation. No worrisome bone lesions. JOINTS: No dislocation. VISUALIZED LUNGS AND RIBS: No pneumothorax. No rib fracture. SOFT TISSUES: No radiopaque foreign body. OTHER: No other significant finding. IMPRESSION: NEGATIVE STUDY OF THE RIGHT SHOULDER. NO RADIOGRAPHIC EVIDENCE OF ACUTE INJURY. TECHNICAL DOCUMENTATION: JOB ID: [id number] [employer]- All Rights Reserved Reading location - IP/workstation name: [email or web address]
[2018-07-08] MEDS ORDERED: PREDNISONE 20 MG TABLET PO ONE (16:45)
[2018-07-08 17:17] VITALS: BP 154/80
== END 2018-07-08 17:22 | disposition home or self-care (01) ==
LOC: ER 14:27
DX: M10.9 Gout, unspecified (principal); M79.601 Pain in right arm; W06.XXXA Fall from bed, initial encounter; F17.200 Nicotine dependence, unspecified, uncomplicated; I50.9 Heart failure, unspecified; I25.10 Atherosclerotic heart disease of native coronary artery without angina pectoris; I25.2 Old myocardial infarction; E78.00 Pure hypercholesterolemia, unspecified; I11.0 Hypertensive heart disease with heart failure; E11.9 Type 2 diabetes mellitus without complications
CPT/HCPCS: 99284; 36415; 82550; 73080; 73090; 73030; 73110; J7512

== ENCOUNTER → 2018-07-19 | Outpatient (CLI) | payer OTHER ==
[2018-07-19 15:26] LABS: ABSOLUTE EOSINOPHILS # (AUTO) 0.4 10^3/uL (0.0-0.6); ABSOLUTE LYMPHOCYTES (AUTO) 0.6 10^3/uL (0.5-4.7); ABSOLUTE NEUT (AUTO) 7.5 10^3/uL (1.7-8.2); BASOPHILS % (AUTO) 0.5 % (0-2); EOSINOPHILS % (AUTO) 3.7 % (0-6); HEMOGLOBIN 9.4 g/dL (13.5-17.0); LYMPHOCYTES % (AUTO) 6.1 % (13-45); MEAN CORPUSCULAR HEMOGLOBIN 29.1 pg (27.0-33.4); MEAN CORPUSCULAR HGB CONC 33.5 g/dL (32.0-36.0); MEAN CORPUSCULAR VOLUME 87 fl (80-97); MONOCYTES % (AUTO) 10.6 % (3-13); PLATELET COUNT 396 10^3/uL (150-450); RED BLOOD COUNT 3.22 10^6/uL (4.35-5.55); RED CELL DISTRIBUTION WIDTH 23.7 % (11.5-14.0); SEGMENTED NEUTROPHILS % (AUTO) 79.1 % (42-78); TOTAL CELLS COUNTED % (AUTO) 100 %; WHITE BLOOD COUNT 9.5 10^3/uL (4.0-10.5)
[2018-07-19 15:28] LABS: APPEARANCE,URINE CLEAR; BILIRUBIN,URINE NEGATIVE (NEGATIVE); COLOR,URINE YELLOW; GLUCOSE, URINE NEGATIVE (NEGATIVE); KETONES,URINE NEGATIVE (NEGATIVE); LEUKOCYTE ESTERASE,URINE NEGATIVE (NEGATIVE); NITRITE,URINE NEGATIVE (NEGATIVE); PROTEIN,URINE 30 mg/dL (NEGATIVE); URINE SPECIFIC GRAVITY 1.017; UROBILINOGEN,URINE NEGATIVE mg/dL (<2.0)
[2018-07-19 15:43] LABS: ALANINE AMINOTRANSFERASE 38 U/L (21-72); ALBUMIN 3.1 g/dL (3.5-5.0); ALKALINE PHOSPHATASE 82 U/L (38-126); ANION GAP 6 (5-19); ASPARTATE AMINO TRANSFERASE 28 U/L (17-59); BILIRUBIN,DIRECT 0.3 mg/dL (0.0-0.4); BILIRUBIN,TOTAL 0.6 mg/dL (0.2-1.3); BLOOD UREA NITROGEN 37 mg/dL (7-20); CALCIUM 8.5 mg/dL (8.4-10.2); CARBON DIOXIDE 28 mmol/L (22-30); CHLORIDE 105 mmol/L (98-107); GLUCOSE 153 mg/dL (75-110); IRON(TIBC) 26.4 ug/dL (49-181); PHOSPHORUS 4.1 mg/dL (2.5-4.5); POTASSIUM 4.8 mmol/L (3.6-5.0); SODIUM 139.4 mmol/L (137-145); TOTAL PROTEIN 5.8 g/dL (6.3-8.2); URIC ACID 5.2 mg/dL (3.5-8.5)
== END ==
LOC: OD 14:53
PROVIDERS: ATTEND Internal Medicine Nephrology
DX: N18.3 Chronic kidney disease, stage 3 (moderate) (principal); D64.9 Anemia, unspecified; I50.9 Heart failure, unspecified; M10.00 Idiopathic gout, unspecified site
CPT/HCPCS: 36415; 80053; 81001; 82728; 83540; 83550; 83970; 84100; 84550; 85025

== ENCOUNTER 2018-09-01 07:56 | Day surgery (SDC) | payer OTHER ==
[~2018-09-01 07:56] MED LIST changes: +KETOROLAC TROMETHAMINE 0.45% 4 DROP/0.4 ML DROPERETTE OD PRN; +LIDOCAINE 1% INJ-PF (10 MG/ML) 30 ML SDV ONE; +MIDAZOLAM 2 MG/2 ML INJ ONE; -TOBRAMYCIN SULFATE INJ 1.2 GM PWDR VIAL MC PRN
[2018-09-01] MEDS: TROPICAMIDE 1% OPH SOLN 3 ML OD PRN ×3 (08:30→08:52)
[2018-09-01] MEDS: CYCLOPENTOLATE 0.2%/PHENYLEPHRINE 1% OPH SOLN 2 ML OD PRN ×3 (08:30→08:52)
[2018-09-01] MEDS: BESIFLOXACIN HCL 0.6% OPH SUSP 5 ML BOTTLE OD PRN ×4 (08:31→09:44)
[2018-09-01] MEDS: TETRACAINE HCL 0.5% OPH SOLN 0.6 ML DROPERETTE OD PRN ×3 (08:32→08:56)
[2018-09-01] MEDS: EPINEPHRINE INJ/PF 1 MG/1 ML AMPULE ONE ×2 (09:09)
[2018-09-01] MEDS: LIDOCAINE 1%/PHENYLEPHRINE 1.5% 1 ML VIAL ONE ×2 (09:09)
[2018-09-01] MEDS: CHONDR SU A NA/HYALUR INTRAOC KIT (SURGICARE) ONE ×2 (09:09)
[2018-09-01] MEDS: TRYPAN BLUE 0.06 % OPH SOLN 0.5 ML DISP.SYRIN ONE ×2 (09:09)
[2018-09-01] MEDS: TOBRAMYCIN SULFATE/DEXAMETH OPH OINTMENT 3.5 GM ONE ×2 (09:44)
[2018-09-01] MEDS ORDERED: CHONDR SU A NA/HYALUR SOD 0.5 ML DISP.SYRIN ONE (09:49)
[2018-09-01] MEDS ORDERED: ACETYLCHOLINE CHLORIDE 20 MG/2 ML KIT ONE (09:49)
[2018-09-01] MEDS ORDERED: ACETAZOLAMIDE 250 MG TABLET ONE (10:00)
== END 2018-09-01 10:21 | disposition home or self-care (01) ==
LOC: SC 07:56
PROVIDERS: ATTEND Ophthalmology
DX: H25.11 Age-related nuclear cataract, right eye (principal); H40.1110 Primary open-angle glaucoma, right eye, stage unspecified; H40.1121 Primary open-angle glaucoma, left eye, mild stage; E11.22 Type 2 diabetes mellitus with diabetic chronic kidney disease; I13.10 Hypertensive heart and chronic kidney disease without heart failure, with stage 1 through stage 4 chronic kidney disease, or unspecified chronic kidney disease; N18.3 Chronic kidney disease, stage 3 (moderate); I25.2 Old myocardial infarction; E78.00 Pure hypercholesterolemia, unspecified; M10.9 Gout, unspecified; D64.9 Anemia, unspecified; Z86.73 Personal history of transient ischemic attack (TIA), and cerebral infarction without residual deficits
CPT/HCPCS: 0191T; 66984; 82962; J0171; J2250; J2370; J3490; V2632

== ENCOUNTER 2018-09-17 11:26 | Inpatient (IN) | payer OTHER ==
[~2018-09-17 11:26] MED LIST changes: +EPINEPHRINE INJ 1 MG/10 ML DISP.SYRIN ONE; -KETOROLAC TROMETHAMINE 0.45% 4 DROP/0.4 ML DROPERETTE OD PRN; -LIDOCAINE 1% INJ-PF (10 MG/ML) 30 ML SDV ONE; -MIDAZOLAM 2 MG/2 ML INJ ONE; +SODIUM BICARBONATE 8.4% INJ 50 MEQ/50 ML DISP.SYRIN ONE
[2018-09-17] MEDS ORDERED: CALCIUM GLUCONATE 1000 MG/10 ML INJ IV ONE (12:09)
--- NOTE | 2018-09-17 12:28 | ER Document Report ---
ED General - General Stated Complaint: ALTERED MENTAL STATUS Time Seen by Provider: 09/17/18 11:45 TRAVEL OUTSIDE OF THE [place] IN LAST 30 DAYS: No - HPI Notes: Patient is a 57-year-old male that presents to the emergency department for chief complaint of altered mental status. Patient presents from home by EMS. He is currently living with his sister. Sister states yesterday he began having significant fatigue and a difficult time getting off the couch. She states that she placed his home medications in a pillbox next to him with some Ensure and boost and left for the evening. Patient was seen yesterday evening mentating normally by patient's [id number] Who is not currently present. This morning when patient's si ster found him he was altered and less responsive, this was at about 1030 this morning. Patient has a remote history of drinking alcohol but sister states he has not had any in the last 2 years. Patient does state that he did drink alcohol. EMS reports it appeared that patient had emesis however sister is stating that she believes he knocked over the Ensure bottle. Patient does state that he believes he had vomited at home but he is not sure. HPI is limited because of patient's current mental status. EMS did note that he had a blood glucose of 45 when they found him, he received IV glucose by EMS prior to arrival. Past Medical History: Hypertension, diabetes Past Surgical History: Reviewed in chart Social History: Remote history of alcohol use Family History: Reviewed and noncontributory for presenting illness Allergies: Reviewed, see documented allergy list. REVIEW OF SYSTEMS: Unable to obtain with acuity of condition PHYSICAL EXAMINATION: Vital signs reviewed, nursing noted reviewed. GENERAL: Ill-appearing, thin and somnolent HEAD: Atraumatic, normocephalic. EYES: Eyes appear normal, extraocular movements intact, sclera anicteric, conjunctiva are mayra and not pale . ENT: nares patent, oropharynx clear with brown substance on patient's tongue and around his mouth. Dry mucous membranes. NECK: Normal range of motion, supple without lymphadenopathy LUNGS: Breath sounds clear to auscultation bilaterally and equal. No wheezes rales or rhonchi. Mild tachypnea with no accessory muscle use HEART: Bradycardic and irregular rhythm without murmurs ABDOMEN: Soft, nontender, normoactive bowel sounds. No rebound, guarding, or rigidity. No masses appreciated. No abdominal bruit EXTREMITIES: Nontender, good range of motion, trace pretibial edema bilateral, symmetric. NEUROLOGICAL: Oriented to person disoriented to time, situation, and place. GCS 14. no focal neurological deficits. Moves all extremities spontaneously Motor and sensory grossly intact on exam. SKIN: Warm, Dry, normal turgor, no rashes or lesions noted on exposed skin - Related Data Allergies/Adverse Reactions: simvastatin [From Zocor] Allergy (Severe, Verified 08/31/18 13:07) RASH lisinopril Adverse Reaction (Intermediate, Verified 08/31/18 13:07) COUGH Past Medical History - Social History Smoking Status: Never Smoker Family History: Reviewed & Not Pertinent - Past Medical History Cardiac Medical History: Reports: Hx Congestive Heart Failure, Hx Coronary Artery Disease - Status post 7 stents placed, last on June 2016, Hx Heart Attack, Hx Hypercholesterolemia, Hx Hypertension Pulmonary Medical History: Reports: Hx COPD Denies: Hx Asthma, Hx Bronchitis Neurological Medical History: Denies: Hx Cerebrovascular Accident, Hx Seizures Endocrine Medical History: Reports: Hx Diabetes Mellitus Type 2 Renal/ Medical History: Denies: Hx Benign Prostatic Hyperplasia, Hx Peritoneal Dialysis GI Medical History: Denies: Hx Hepatitis, Hx Hiatal Hernia, Hx Ulcer Musculoskeletal Medical History: Denies Hx Arthritis, Reports Hx Gout Infectious Medical History: Denies: Hx Hepatitis Past Surgical History: Reports: Hx Appendectomy, Hx Cardiac Catheterization, Hx Cardiac Surgery - 5 stents, 2 revisions, Hx Neurologic Surgery - Lumbar fusion, Hx Orthopedic Surgery - toe amputation x2. Denies: Hx Open Heart Surgery, Hx Pacemaker - Immunizations Hx Diphtheria, Pertussis, Tetanus Vaccination: Yes Physical Exam - Vital signs Vitals: Resp 26 H 09/17/18 11:41 Course - Re-evaluation Re-evalutation: 09/17/18 12:30 Vitals reviewed. Nursing notes reviewed. Patient presented bradycardic and hypotensive with altered mental status. He was having frequent ectopy with long pauses in between. Patient given IV calcium for concern of possible hyperkalemia given the sister's report that he has had kidney disease in the past. After calcium and 2 L IV fluids patient's heart rate is 75 and blood pressure improved to 91/73. Clinically he did improve but is still disoriented to place and situation. Patient's pH is 6.73 and he will be started on bicarb infusion. His [id number] glucose at presentation in the ED is 120. Patient's pH patient has an elevated lactate at 18.54. He was started on broad-spectrum antibiotics. He is also in acute renal failure with a creatinine greater than 8. Patient is likely uremic and requiring emergent dialysis. Other causes of his acidosis may be from septic shock or his metformin. He has never required dialysis before. I discussed his care with Dr. Brown who will come evaluate him in the ED. 09/17/18 13:53 Dr. Brown at bedside and able to arrange patient for emergent dialysis at this facility. Dr. Hinojosa agreed to come place dialysis catheter and would like to use patient's IJ therefore I placed his central venous catheter in his right femoral region. Patient is still hypotensive and will be ordered more IV fluids and started on levofed. Dr. Brown requested ethylene glycol, methanol, and serum osmole's. I am not highly suspicious of an ingestion since family states that they have been with him and he has been unable to get off the couch or go outside because of illness recently. Laboratory 09/17/18 09/17/18 09/17/18 11:40 11:40 11:40 WBC Cancelled RBC Cancelled Hgb Cancelled Hct Cancelled MCV Cancelled MCH Cancelled MCHC Cancelled RDW Cancelled Plt Count Cancelled Seg Neutrophils % Cancelled Lymphocytes % Cancelled Monocytes % Cancelled Eosinophils % Cancelled Basophils % Cancelled Absolute Neutrophils Cancelled Absolute Lymphocytes Cancelled Absolute Monocytes Cancelled Absolute Eosinophils Cancelled Absolute Basophils Cancelled Platelet Estimate Cancelled PT 18.3 H INR 1.44 VBG pH VBG pCO2 VBG HCO3 VBG Base Excess Sodium 147.4 H Potassium 5.4 H Chloride 101 Carbon Dioxide < 5 L* Anion Gap Not Reportable BUN 90 H Creatinine 8.18 H Est GFR ( Amer) 8 L Est GFR (Non-Af Amer) 7 L Glucose 121 H Lactic Acid Calcium 9.7 Total Bilirubin 0.7 Direct Bilirubin 0.7 H Neonat Total Bilirubin Not Reportable Neonat Direct Bilirubin Not Reportable Neonat Indirect Bili Not Reportable AST 27 ALT < 6 L Alkaline Phosphatase 78 Ammonia Troponin I Total Protein 7.0 Albumin 4.0 Salicylates Acetaminophen Serum Alcohol < 10 Slides for Path Review Cancelled Blood Type Antibody Screen 09/17/18 09/17/1809/17/19 11:40 11:40 11:40 WBC RBC Hgb Hct MCV MCH MCHC RDW Plt Count Seg Neutrophils % Lymphocytes % Monocytes % Eosinophils % Basophils % Absolute Neutrophils Absolute Lymphocytes Absolute Monocytes Absolute Eosinophils Absolute Basophils Platelet Estimate PT INR VBG pH VBG pCO2 VBG HCO3 VBG Base Excess Sodium Potassium Chloride Carbon Dioxide Anion Gap BUN Creatinine Est GFR ( Amer) Est GFR (Non-Af Amer) Glucose Lactic Acid 18.5 H Calcium Total Bilirubin Direct Bilirubin Neonat Total Bilirubin Neonat Direct Bilirubin Neonat Indirect Bili AST ALT Alkaline Phosphatase Ammonia Troponin I < 0.012 Total Protein Albumin Salicylates < 1.0 L Acetaminophen < 10 L Serum Alcohol Slides for Path Review Blood Type Antibody Screen 09/17/18 09/17/18 09/17/18 12:17 12:17 12:54 WBC RBC Hgb Hct MCV MCH MCHC RDW Plt Count Seg Neutrophils % Lymphocytes % Monocytes % Eosinophils % Basophils % Absolute Neutrophils Absolute Lymphocytes Absolute Monocytes Absolute Eosinophils Absolute Basophils Platelet Estimate PT INR VBG pH 6.73 L* VBG pCO2 27.2 L VBG HCO3 3.5 L VBG Base Excess -31.3 Sodium Potassium Chloride Carbon Dioxide Anion Gap BUN Creatinine Est GFR ( Amer) Est GFR (Non-Af Amer) Glucose Lactic Acid Calcium Total Bilirubin Direct Bilirubin Neonat Total Bilirubin Neonat Direct Bilirubin Neonat Indirect Bili AST ALT Alkaline Phosphatase Ammonia 204.7 H Troponin I Total Protein Albumin Salicylates Acetaminophen Serum Alcohol Slides for Path Review Blood Type A POSITIVE Antibody Screen NEGATIVE 09/17/18 12:54 WBC RBC Hgb Hct MCV MCH MCHC RDW Plt Count Seg Neutrophils % Not Reportable Lymphocytes % Not Reportable Monocytes % Not Reportable Eosinophils % Not Reportable Basophils % Not Reportable Absolute Neutrophils Not Reportable Absolute Lymphocytes Not Reportable Absolute Monocytes Not Reportable Absolute Eosinophils Not Reportable Absolute Basophils Not Reportable Platelet Estimate PT INR VBG pH VBG pCO2 VBG HCO3 VBG Base Excess Sodium Potassium Chloride Carbon Dioxide Anion Gap BUN Creatinine Est GFR ( Amer) Est GFR (Non-Af Amer) Glucose Lactic Acid Calcium Total Bilirubin Direct Bilirubin Neonat Total Bilirubin Neonat Direct Bilirubin Neonat Indirect Bili AST ALT Alkaline Phosphatase Ammonia Troponin I Total Protein Albumin Salicylates Acetaminophen Serum Alcohol Slides for Path Review Blood Type Antibody Screen Chest X-Ray 09/17/18 12:08 IMPRESSION: Right lower lobe infiltrate either atelectasis or pneumonia. Head CT 09/17/18 12:10 IMPRESSION: No acute intracranial pathology. EVIDENCE OF ACUTE STROKE: NO. Patient's care was discussed with Dr. Kevin who accepts admission. 09/17/18 14:12 Patient's ammonia level came back greater than 200. NG will be placed in order to give patient lactulose. He still has a GCS of 14 and is not requiring intubation. - Vital Signs Vital signs: Temp Pulse Resp BP Pulse Ox 19 91/73 L 99 09/17/18 12:08 09/17/18 12:08 09/17/18 12:08 - Laboratory Result Diagrams: 09/17/18 12:54 09/17/18 11:40 Laboratory results interpreted by me: 09/17/18 09/17/18 09/17/18 11:40 11:40 11:40 WBC RBC Hgb Hct MCV MCHC RDW Seg Neuts % (Manual) Band Neutrophils % Lymphocytes % (Manual) Abs Neuts (Manual) Abs Monocytes (Manual) PT 18.3 H VBG pH VBG pCO2 VBG HCO3 Sodium 147.4 H Potassium 5.4 H Carbon Dioxide < 5 L* BUN 90 H Creatinine 8.18 H Est GFR ( Amer) 8 L Est GFR (Non-Af Amer) 7 L Glucose 121 H Lactic Acid 18.5 H Direct Bilirubin 0.7 H ALT < 6 L Ammonia Urine Protein Salicylates Acetaminophen 09/17/18 09/17/18 09/17/18 11:40 12:17 12:17 WBC RBC Hgb Hct MCV MCHC RDW Seg Neuts % (Manual) Band Neutrophils % Lymphocytes % (Manual) Abs Neuts (Manual) Abs Monocytes (Manual) PT VBG pH 6.73 L* VBG pCO2 27.2 L VBG HCO3 3.5 L Sodium Potassium Carbon Dioxide BUN Creatinine Est GFR ( Amer) Est GFR (Non-Af Amer) Glucose Lactic Acid Direct Bilirubin ALT Ammonia 204.7 H Urine Protein Salicylates < 1.0 L Acetaminophen < 10 L 09/17/18 09/17/18 12:45 12:54 WBC 24.4 H RBC 3.00 L Hgb 8.9 L Hct 31.6 L MCV 105 H MCHC 28.0 L RDW 22.6 H Seg Neuts % (Manual) 82 H Band Neutrophils % 6 H Lymphocytes % (Manual) 5 L Abs Neuts (Manual) 21.5 H Abs Monocytes (Manual) 1.5 H PT VBG pH VBG pCO2 VBG HCO3 Sodium Potassium Carbon Dioxide BUN Creatinine Est GFR ( Amer) Est GFR (Non-Af Amer) Glucose Lactic Acid Direct Bilirubin ALT Ammonia Urine Protein 30 H Salicylates Acetaminophen - EKG Interpretation by Me Additional EKG results interpreted by me: 09/17/18 12:28 Interpreted by myself 1142: Atrial fibrillation with slow ventricular response, frequent PVCs and PACs, long pauses 1208: Atrial flutter, rate 75, normal axis, no ectopy Procedures - Central Line Right Femoral Time completed: 13:47 Consent obtained: Yes - from family, emergent indication Central line pre-insertion: Sterile PPE donned, Chloraprep applied, Sterile drapes applied Central line lumen type: Triple Anesthetic type: 1% Lidocaine mL's of anesthesia: 3 Ultrasound guided: Yes Line secured with sutures: Yes Central line post-insertion: Blood return from lumens, Biopatch applied, Sutured, Sterile dressing applied, Position confirmed w/ CXR Number of attempts: 1 Complications: No Critical Care Note - Critical Care Note Total time excluding time spent on procedures (mins): 90 Comments: 90 minutes of critical care time spent in direct contact evaluating and reevaluating the patient, treating symptoms, reviewing labs and studies and speaking with family and consultants excluding any procedures Discharge - Discharge Clinical Impression: Metabolic acidosis, Septic shock, Lactic acidosis, Abnormal EKG, Hyperkalemia, Hyperammonemia, Hypernatremia Pneumonia Qualifiers: Pneumonia type: due to unspecified organism Laterality: unspecified laterality Lung location: unspecified part of lung Qualified Code(s): J18.9 - Pneumonia, unspecified organism Acute renal failure Qualifiers: Acute renal failure type: unspecified Qualified Code(s): N17.9 - Acute kidney failure, unspecified Condition: Serious Disposition: ADMITTED INPATIENT Admitting Provider: Hospitalist Unit Admitted: ICU
[2018-09-17 12:29] LABS: INTERNATIONAL RATION (INR) 1.44; PROTHROMBIN TIME 18.3 SEC (11.4-15.4)
[2018-09-17 12:29] LABS: VENOUS BLOOD BASE EXCESS -31.3 mmol/L; VENOUS BLOOD HCO3 3.5 mmol/L (20-32); VENOUS BLOOD PCO2 27.2 mmHg (35-63)
--- NOTE | 2018-09-17 12:29 | RADIOLOGY REPORT (SQ) ---
EXAM DESCRIPTION: CHEST SINGLE VIEW COMPLETED DATE/TIME: 09/17/2018 12:24 pm REASON FOR STUDY: altered mental status COMPARISON: 01/16/2018 EXAM PARAMETERS: NUMBER OF VIEWS: One view. TECHNIQUE: Single frontal radiographic view of the chest acquired. RADIATION DOSE: NA LIMITATIONS: None. FINDINGS: LUNGS AND PLEURA: There is airspace disease in the right base either atelectasis or pneumo marine. Lung costello are otherwise clear. MEDIASTINUM AND HILAR STRUCTURES: No masses. Contour normal. HEART AND VASCULAR STRUCTURES: Heart normal in size. Normal vasculature. BONES: No acute findings. HARDWARE: None in the chest. OTHER: No other significant finding. IMPRESSION: Right lower lobe infiltrate either atelectasis or pneumonia. TECHNICAL DOCUMENTATION: JOB ID: [id number] [employer]- All Rights Reserved Reading location - IP/workstation name: [email or web address]
[2018-09-17 12:30] LABS: VENOUS BLOOD PH 6.73 (7.30-7.42)
[2018-09-17] MEDS ORDERED: DEXTROSE 5%-WATER 1000 ML 1,000 ML with SODIUM BICARBONATE 150 MEQ IV PRN ×4 (12:32→13:09)
[2018-09-17 12:34] LABS: ALANINE AMINOTRANSFERASE < 6 U/L (21-72); ALCOHOL < 10 mg/dL (NONE DETECTED); ALKALINE PHOSPHATASE 78 U/L (38-126); ASPARTATE AMINO TRANSFERASE 27 U/L (17-59); BILIRUBIN,DIRECT 0.7 mg/dL (0.0-0.4); BILIRUBIN,TOTAL 0.7 mg/dL (0.2-1.3); BLOOD UREA NITROGEN 90 mg/dL (7-20); CALCIUM 9.7 mg/dL (8.4-10.2); CHLORIDE 101 mmol/L (98-107); GLUCOSE 121 mg/dL (75-110); POTASSIUM 5.4 mmol/L (3.6-5.0); SODIUM 147.4 mmol/L (137-145)
[2018-09-17] MEDS: NORMAL SALINE 1000 ML 3,000 ML IV PRN (12:34)
[2018-09-17 12:39] LABS: CARBON DIOXIDE < 5 mmol/L (22-30)
--- NOTE | 2018-09-17 12:40 | RADIOLOGY REPORT (SQ) ---
EXAM DESCRIPTION: CT HEAD WITHOUT COMPLETED DATE/TIME: 09/17/2018 12:33 pm REASON FOR STUDY: mental status change COMPARISON: None. TECHNIQUE: Axial images acquired through the brain without intravenous contrast. Images reviewed wi th bone, brain and subdural windows. Additional sagittal and coronal reconstructions were generated. Images stored on PACS. All CT scanners at this facility use dose modulation, iterative reconstruction, and/or weight based d osing when appropriate to reduce radiation dose to as low as reasonably achievable (ALARA). [facility]: Dose Right [facility]: CareDose [facility]: Dose Right [facility]: Teradose 4D [facility]: [employer] RADIATION DOSE: CT Rad equipment meets quality standard of care and radiation dose reduction techniq ues were employed. CTDIvol: 53.2 mGy. DLP: 1017 mGy-cm. mGy. LIMITATIONS: None. FINDINGS: VENTRICLES: Normal size and contour. CEREBRUM: No masses. No hemorrhage. No midline shift. No evidence for acute infarction. Normal gra y/white matter differentiation. No areas of low density in the white matter. CEREBELLUM: No masses. No hemorrhage. No alteration of density. No evidence for acute infarction. EXTRAAXIAL SPACES: No fluid collections. No masses. ORBITS AND GLOBE: No intra- or extraconal masses. Normal contour of globe without masses. CALVARIUM: No fracture. PARANASAL SINUSES: No fluid or mucosal thickening. SOFT TISSUES: No mass or hematoma. OTHER: No other significant finding. IMPRESSION: No acute intracranial pathology. EVIDENCE OF ACUTE STROKE: NO. COMMENT: Quality ID # [id number]: Final reports with documentation of one or more dose reduction techniques (e.g., Automated exposure control, adjustment of the mA and/or kV according to patient size, use of iterative reconstruction technique) TECHNICAL DOCUMENTATION: JOB ID: [id number] [employer]- All Rights Reserved Reading location - IP/workstation name: [email or web address]
[2018-09-17] MEDS ORDERED: SODIUM BICARBONATE 8.4% INJ 50 MEQ/50 ML DISP.SYRIN ONE ×4 (12:43→17:40)
[2018-09-17] MEDS ORDERED: VANCOMYCIN HCL INJ 1000 MG VIAL IV ONE (12:44)
[2018-09-17] MEDS ORDERED: PIPERACILLIN/TAZOBACTAM 3.375 GM VIAL IV ONE (12:44)
[2018-09-17] MEDS ORDERED: SODIUM BICARBONATE IV PRN ×2 (13:07)
[2018-09-17] MEDS ORDERED: WATER IV PRN ×2 (13:07)
[2018-09-17] MEDS ORDERED: DEXTROSE 5% IV PRN ×2 (13:07)
[2018-09-17 13:22] LABS: ACETAMINOPHEN < 10 ug/mL (10-30); SALICYLATE < 1.0 mg/dL (2.0-20.0)
[2018-09-17] MEDS ORDERED: NOREPINEPHRINE BITARTRATE INJ/PF 4 MG/4 ML SDV IV ONE ×2 (13:31→17:17)
[2018-09-17 13:32] LABS: HEMATOCRIT 31.6 % (37.9-51.0); HEMOGLOBIN 8.9 g/dL (13.5-17.0); MEAN CORPUSCULAR HEMOGLOBIN 29.5 pg (27.0-33.4); MEAN CORPUSCULAR VOLUME 105 fl (80-97); RED CELL DISTRIBUTION WIDTH 22.6 % (11.5-14.0); WHITE BLOOD COUNT 24.4 10^3/uL (4.0-10.5)
[2018-09-17] MEDS ORDERED: NORMAL SALINE 1000 ML 1,000 ML IV PRN (13:41)
[2018-09-17] MEDS ORDERED: SODIUM BICARBONATE 8.4% INJ 50 MEQ/50 ML DISP.SYRIN IV ONE (13:46)
[2018-09-17 13:47] LABS: ABSOLUTE LYMPHOCYTES# (MANUAL) 1.2 10^3/uL (0.5-4.7); ABSOLUTE MONOCYTES # (MANUAL) 1.5 10^3/uL (0.1-1.4); ABSOLUTE NEUTROPHILS# (MANUAL) 21.5 10^3/uL (1.7-8.2); BAND NEUTROPHILS % (MANUAL) 6 % (3-5); BASOPHILS % (MANUAL) 1 % (0-2); EOSINOPHILS % (MANUAL) 0 % (0-6); LYMPHOCYTES % (MANUAL) 5 % (13-45); MONOCYTES % (MANUAL) 6 % (3-13); SEGMENTED NEUTROPHILS % (MAN) 82 % (42-78); TOTAL CELLS COUNTED 100
[2018-09-17 13:53] LABS: ANISOCYTOSIS 3+; OVALOCYTES SLIGHT; POIKILOCYTOSIS 1+; POLYCHROMASIA 1+; SCHISTOCYTES SLIGHT; TOXIC GRANULATION SLIGHT
[2018-09-17 13:54] LABS: PLATELET COMMENT ADEQUATE; TEAR DROP CELLS SLIGHT
[2018-09-17 13:56] LABS: PLATELET CLUMPS PRESENT; PLATELET COUNT 312 10^3/uL (150-450)
[2018-09-17] MEDS ORDERED: LACTULOSE SYRUP 20 GM/30 ML UDCUP PO ONE (13:57)
[2018-09-17 14:05] LABS: APPEARANCE,URINE SLIGHTLY-CLOUDY; BILIRUBIN,URINE NEGATIVE (NEGATIVE); GLUCOSE, URINE NEGATIVE (NEGATIVE); KETONES,URINE NEGATIVE (NEGATIVE); LEUKOCYTE ESTERASE,URINE NEGATIVE (NEGATIVE); NITRITE,URINE NEGATIVE (NEGATIVE); PROTEIN,URINE 30 mg/dL (NEGATIVE); URINE SPECIFIC GRAVITY 1.017; UROBILINOGEN,URINE NEGATIVE mg/dL (<2.0)
[2018-09-17 14:06] LABS: COLOR,URINE DARK YELLOW
--- NOTE | 2018-09-17 14:13 | RADIOLOGY REPORT (SQ) ---
EXAM DESCRIPTION: KUB/ABDOMEN (SINGLE VIEW) COMPLETED DATE/TIME: 09/17/2018 2:06 pm REASON FOR STUDY: Femoral line placement COMPARISON: None. NUMBER OF VIEWS: One view. TECHNIQUE: Supine radiographic image of the abdomen acquired. LIMITATIONS: None. FINDINGS: BOWEL GAS PATTERN: Normal bowel gas pattern. No dilated loops. CALCIFICATIONS: No suspicious calcifications. SOFT TISSUES: No gross mass or suggestion of organomegaly. HARDWARE: Femoral line in place. Catheter tip overlies the right aspect of the L5 vertebral body mos t likely within the distal IVC. BONES: No acute fracture. No worrisome bone lesions. OTHER: No other significant finding. IMPRESSION: Right-sided femoral line has been placed as described. Gas pattern is nonspecific. TECHNICAL DOCUMENTATION: JOB ID: [id number] [employer]- All Rights Reserved Reading location - IP/workstation name: [email or web address]
[2018-09-17 14:32] LABS: URINE AMPHETAMINES SCREEN NEGATIVE; URINE BARBITURATES SCREEN NEGATIVE; URINE BENZODIAZEPINES SCREEN NEGATIVE; URINE COCAINE SCREEN NEGATIVE; URINE MARIJUANA (THC) SCREEN NEGATIVE; URINE METHADONE SCREEN NEGATIVE; URINE PHENCYCLIDINE SCREEN NEGATIVE
[2018-09-17 15:12] VITALS: BP 64/43
[2018-09-17] MEDS ORDERED: DEXTROSE 40% GEL 15 GM TUBE PO PRN ×2 (15:14)
[2018-09-17] MEDS ORDERED: PANTOPRAZOLE SODIUM 40 MG VIAL IV STA (15:14)
[2018-09-17] MEDS ORDERED: DEXTROSE 50%-WATER 25 GM/50 ML DISP.SYRIN IV PRN ×2 (15:14)
[2018-09-17] MEDS ORDERED: GLUCAGON,HUMAN RECOMB 1 MG INJ SUBCUT PRN (15:14)
[2018-09-17] MEDS ORDERED: PHARMACY COMMUNICATION ORDER MC NR (15:15)
--- NOTE | 2018-09-17 15:29 | RADIOLOGY REPORT (SQ) ---
EXAM DESCRIPTION: KUB/ABDOMEN (SINGLE VIEW) COMPLETED DATE/TIME: 09/17/2018 2:06 pm REASON FOR STUDY: NG placement COMPARISON: None. NUMBER OF VIEWS: One view, included in the images for the femoral line placement. TECHNIQUE: Supine radiographic image of the abdomen acquired. LIMITATIONS: None. FINDINGS: BOWEL GAS PATTERN: Normal bowel gas pattern. No dilated loops. CALCIFICATIONS: No suspicious calcifications. SOFT TISSUES: No gross mass or suggestion of organomegaly. HARDWARE: The NG tube terminates in the distal esophagus BONES: No acute fracture. No worrisome bone lesions. OTHER: No other significant finding. IMPRESSION: The NG tube has its tip in the distal esophagus. TECHNICAL DOCUMENTATION: JOB ID: [id number] [employer]- All Rights Reserved Reading location - IP/workstation name: [email or web address]
[2018-09-17 15:35] LABS: ARTERIAL BLOOD BASE EXCESS -28.3 mmol/L; ARTERIAL BLOOD H2CO3 0.68 mmol/L (1.05-1.35); ARTERIAL BLOOD HCO3 3.8 mmol/L (20-24); ARTERIAL BLOOD O2 SATURATION 95.3 % (94-98); ARTERIAL BLOOD PCO2 22.5 mmHg (35-45); ARTERIAL BLOOD PO2 128.9 mmHg (80-100); ARTERIAL BLOOD TOTAL CO2 4.5 mmol/L (23-27)
[2018-09-17 15:36] LABS: ARTERIAL BLOOD FIO2 ROOM AIR
[2018-09-17 15:37] LABS: ARTERIAL BLOOD PH 6.85 (7.35-7.45)
[2018-09-17] MEDS ORDERED: MIDAZOLAM 2 MG/2 ML INJ ONE ×2 (16:34→16:36)
[2018-09-17] MEDS ORDERED: DEXMEDETOMIDINE IN 0.9 % NACL 400 MCG/100 ML RTUPB IV ONE (16:39)
[2018-09-17] MEDS ORDERED: ETOMIDATE INJ/PF 20 MG/10 ML SDV IV ONE (16:39)
[2018-09-17] MEDS ORDERED: PANTOPRAZOLE SODIUM 80 MG in NORMAL SALINE 100 ML IV ONE (17:00)
[2018-09-17] MEDS ORDERED: NORMAL SALINE 100 ML with PANTOPRAZOLE SODIUM 80 MG IV PRN ×2 (17:00)
[2018-09-17 17:22] LABS: ALANINE AMINOTRANSFERASE 42 U/L (21-72); ALBUMIN 2.9 g/dL (3.5-5.0); ALKALINE PHOSPHATASE 71 U/L (38-126); ASPARTATE AMINO TRANSFERASE 78 U/L (17-59); BILIRUBIN,DIRECT 0.5 mg/dL (0.0-0.4); BILIRUBIN,TOTAL 0.6 mg/dL (0.2-1.3); BLOOD UREA NITROGEN 78 mg/dL (7-20); CALCIUM 7.8 mg/dL (8.4-10.2); GLUCOSE 219 mg/dL (75-110); PHOSPHORUS 11.5 mg/dL (2.5-4.5); TOTAL PROTEIN 5.4 g/dL (6.3-8.2)
[2018-09-17 17:23] LABS: ARTERIAL BLOOD BASE EXCESS -30.5 mmol/L; ARTERIAL BLOOD H2CO3 1.05 mmol/L (1.05-1.35); ARTERIAL BLOOD HCO3 4.4 mmol/L (20-24); ARTERIAL BLOOD O2 SATURATION 99.1 % (94-98); ARTERIAL BLOOD PO2 330.7 mmHg (80-100); ARTERIAL BLOOD TOTAL CO2 5.4 mmol/L (23-27)
[2018-09-17 17:26] LABS: CHLORIDE 106 mmol/L (98-107)
[2018-09-17 17:28] LABS: ARTERIAL BLOOD FIO2 40%
--- NOTE | 2018-09-17 17:28 | RADIOLOGY REPORT (SQ) ---
EXAM DESCRIPTION: CHEST SINGLE VIEW COMPLETED DATE/TIME: 09/17/2018 5:07 pm REASON FOR STUDY: ET Tube Placement and Readjusted NG COMPARISON: None. EXAM PARAMETERS: NUMBER OF VIEWS: One view. TECHNIQUE: Single frontal radiographic view of the chest acquired. RADIATION DOSE: NA LIMITATIONS: None. FINDINGS: LUNGS AND PLEURA: Mild pulmonary edema. Increased opacification in the right base. MEDIASTINUM AND HILAR STRUCTURES: No masses. Contour normal. HEART AND VASCULAR STRUCTURES: Cardiomegaly. BONES: No acute findings. HARDWARE: Endotracheal tube has its tip 15 mm above the love. NG tube extends to the gastric fundu s. OTHER: No other significant finding. IMPRESSION: Cardiomegaly with mild pulmonary edema. Tube placement as described. Recommend withdra wal of the endotracheal tube by about 3 cm. TECHNICAL DOCUMENTATION: JOB ID: [id number] [employer]- All Rights Reserved Reading location - IP/workstation name: [email or web address]
[2018-09-17 17:30] LABS: ARTERIAL BLOOD PH 6.71 (7.35-7.45)
[2018-09-17 17:35] LABS: POTASSIUM 4.1 mmol/L (3.6-5.0)
[2018-09-17] MEDS ORDERED: VASOPRESSIN INJ 20 UNIT/1 ML VIAL ONE (17:35)
[2018-09-17 17:36] LABS: ANION GAP 37 (5-19)
[2018-09-17 17:37] LABS: CARBON DIOXIDE 7 mmol/L (22-30)
[2018-09-17] MEDS ORDERED: INSULIN LISPRO 100 UNIT/ML 3 ML VIAL SUBCUT SCH (18:00)
[2018-09-17] MEDS ORDERED: MORPHINE SULFATE 10 MG/ML INJ IV PRN ×2 (18:54)
[2018-09-17] MEDS ORDERED: MORPHINE SULFATE 10 MG/ML INJ ONE (18:56)
[2018-09-17] MEDS ORDERED: LORAZEPAM INJ 2 MG/1 ML VIAL IV PRN (18:56)
[2018-09-17] MEDS ORDERED: MORPHINE SULFATE 10 MG/ML INJ IV ONE (19:15)
--- NOTE | 2018-09-17 20:59 | PDOC H&P ---
History of Present Illness Admission Date/PCP: 09/17/18 13:55 JACKSON WILLINGHAM MD Patient complains of: Altered mental status History of Present Illness: KAEL FIGUEROA is a 57 year old male with a significant past medical history for diabetes mellitus, coronary artery disease with myocardial infarction x2. He has [address] He has a history of congestive heart failure, gout and stage III chronic renal insufficiency. Within the last year he has experienced a frontal lobe stroke and is treated for anemia that is combination of renal insufficiency and iron deficiency. The patient was in his usual state of health several days ago. He had just undergone eye surgery. In the last several months he had undergone amputation of several toes. 2 days ago he began to feel somewhat tired but was mentating appropriately. This morning he exhibited acute altered mental status. He was confused. His interaction with family deteriorated. He was brought to the emergency department for evaluation. Upon arrival he was noted to be weak and confused. Laboratory values revealed a white blood cell count of 24.4 with a hemoglobin of 8.9 and a platelet count of 312. His sodium was 147 with potassium of 5.4, chloride 101 and bicarb less than 5. BUN was 90 and his creatinine is 8.18 with a glucose of 121. Anion gap was approximately 36. The patient's lactic acid was 18.5 with an ammonia level of 204.7. Toxicology screen was negative including alcohol and acetaminophen. Ethylene glycol and methyl alcohol levels are pending. A venous blood gas revealed a pH of 6.[address] Brown, his batch and furnace manager, was urgently consulted. The hospitalist service was called for admission. The plan is to insert a temporary dialysis catheter and dialyze the patient. In the interim we are administering aggressive fluids and bicarb. Past Medical History Cardiac Medical History: Reports: Congestive Heart Failure, Coronary Artery Disease - Status post 7 stents placed, last on June 2016, Myocardial Infarction - X2, Hyperlipidema, Hypertension Pulmonary Medical History: Reports: Chronic Obstructive Pulmonary Disease (COPD) Denies: Asthma, Bronchitis EENT Medical History: Reports: Cataracts, Eyes - Glaucoma and cataracts Neurological Medical History: Reports: Ischemic CVA, Other - Recent frontal lobe stroke Denies: Seizures Endocrine Medical History: Reports: Diabetes Mellitus Type 2 Renal/ Medical History: Reports: Chronic Kidney Disease Malignancy Medical History: Reports: None GI Medical History: Denies: Hepatitis, Hiatal Hernia Musculoskeltal Medical History: Reports: Gout Denies: Arthritis Skin Medical History: Denies: Eczema, Psoriasis Psychiatric Medical History: Reports: Tobacco Dependency Traumatic Medical History: Reports: None Hematology: Reports: Anemia Denies: Sickle Cell Disease, Bleeding Tendencies Infectious Medical History: Reports: None Past Surgical History Past Surgical History: Reports: Appendectomy, Cardiac Catheterization, Orthopedic Surgery - toe amputation x2 Denies: Pacemaker Social History Information Source: Patient - Extremely limited information available, Office - The patient's technical laboratory asst and batch and furnace manager, [facility] Records Smoking Status: Current Every Day Smoker Cigars Per Day: 3 Frequency of Alcohol Use: None Hx Recreational Drug Use: No Drugs: None Hx Prescription Drug Abuse: No - Advance Directive Resuscitation Status: Full Code Surrogate healthcare decision maker:: No family was present at the time of admission. The patient was therefore a full code. This is consistent with his old records. Family History Family History: Reviewed & Not Pertinent Parental Family History Reviewed: No - Patient unable to provide history Children Family History Reviewed: No - Patient unable to provide history Sibling(s) Family History Reviewed.: No - Patient unable to provide history Medication/Allergy Home Medications: Acetazolamide [Diamox 250 mg Tab] 250 mg PO QID 09/17/18 Atorvastatin Calcium [Lipitor 80 mg Tablet] 80 mg PO QHS 09/17/18 Carvedilol [Coreg 12.5 mg Tablet] 12.5 mg PO DAILY 09/17/18 Colchicine [Colcrys 0.6 mg Tablet] 0.6 mg PO DAILY 09/17/18 Ezetimibe [Zetia 10 mg Tablet] 10 mg PO DAILY 09/17/18 Febuxostat [Uloric 80 mg Tablet] 80 mg PO DAILY 09/17/18 Ferrous Sulfate [Feosol 325 mg Tablet] 325 mg PO BID 09/17/18 Gabapentin [Neurontin 300 mg Capsule] 300 mg PO Q8 09/17/18 Levothyroxine Sodium [Synthroid 0.025 mg Tablet] 0.025 mg PO Q6AM 09/17/18 Sacubitril/Valsartan [Entresto 49 mg/51 mg Tablet] 1 tab PO BID 09/17/18 Torsemide [Demadex 20 mg Tablet] 20 mg PO Q12 09/17/18 Allergies/Adverse Reactions: simvastatin [From Zocor] Allergy (Severe, Verified 08/31/18 13:07) RASH lisinopril Adverse Reaction (Intermediate, Verified 08/31/18 13:07) COUGH Review of Systems ROS unobtainable: Due to mental status Constitutional: PRESENT: as per HPI Gastrointestinal: PRESENT: other - Bright red blood in nasogastric tube Psychiatric: PRESENT: other - Delirium Hematologic/Lymphatic: PRESENT: other - Lebron blood in the nasogastric tube Physical Exam Vital Signs: Temp Pulse Resp BP Pulse Ox 87.8 F L 67 16 64/43 L 100 09/17/18 12:49 09/17/18 12:49 09/17/18 12:49 09/17/18 12:49 09/17/18 12:49 Intake & Output 09/16/18 09/17/18 09/18/18 06:59 06:59 06:59 Intake Total 5000 Balance 5000 Weight 69.2 kg General appearance: PRESENT: well-developed - Ill appearing 57-year-old male patient.. ABSENT: cooperative - Confused. Attempts to answer questions limited and hard to understand. Head exam: PRESENT: atraumatic, normocephalic Eye exam: PRESENT: conjunctiva pale, scleral icterus Ear exam: PRESENT: normal external ear exam Mouth exam: PRESENT: other - Dried blood on teeth. Nasogastric tube in place with bright red blood. Teeth exam: PRESENT: poor dentation Respiratory exam: PRESENT: decreased breath sounds, rhonchi - Right base, symmetrical. ABSENT: wheezes Cardiovascular exam: PRESENT: RRR, +S1, +S2, systolic murmur Pulses: PRESENT: other - Diminished pedal pulses GI/Abdominal exam: PRESENT: normal bowel sounds, soft, other - Bright red blood in the nasogastric tube. ABSENT: distended, tenderness Rectal exam: PRESENT: deferred Gentrourinary exam: PRESENT: indwelling catheter Musculoskeletal exam: ABSENT: ambulatory Neurological exam: PRESENT: altered, awake, oriented to person. ABSENT: oriented to place, oriented to situation Psychiatric exam: PRESENT: appropriate affect - Reflex current state of confusion. ABSENT: agitated, anxious Focused psych exam: PRESENT: restlessness Skin exam: ABSENT: normal color - Sallow complexion Results Laboratory Results: 09/17/18 12:54 09/17/18 11:40 09/17/18 09/17/18 09/17/18 11:40 11:40 11:40 WBC Cancelled RBC Cancelled Hgb Cancelled Hct Cancelled MCV Cancelled MCH Cancelled MCHC Cancelled RDW Cancelled Plt Count Cancelled Seg Neutrophils % Cancelled Lymphocytes % Cancelled Monocytes % Cancelled Eosinophils % Cancelled Basophils % Cancelled Absolute Neutrophils Cancelled Absolute Lymphocytes Cancelled Absolute Monocytes Cancelled Absolute Eosinophils Cancelled Absolute Basophils Cancelled Carbonic Acid HCO3/H2CO3 Ratio ABG pH ABG pCO2 ABG pO2 ABG HCO3 ABG O2 Saturation ABG Base Excess VBG pH VBG pCO2 VBG HCO3 VBG Base Excess FiO2 Sodium 147.4 H Potassium 5.4 H Chloride 101 Carbon Dioxide < 5 L* Anion Gap Not Reportable BUN 90 H Creatinine 8.18 H Est GFR ( Amer) 8 L Est GFR (Non-Af Amer) 7 L Glucose 121 H Serum Osmolality Lactic Acid 18.5 H Calcium 9.7 Total Bilirubin 0.7 AST 27 ALT < 6 L Alkaline Phosphatase 78 Ammonia Total Protein 7.0 Albumin 4.0 Urine Color Urine Appearance Urine pH Ur Specific [place] Urine Protein Urine Glucose (UA) Urine Ketones Urine Blood Urine Nitrite Ur Leukocyte Esterase Urine WBC (Auto) Urine RBC (Auto) Blood Type Antibody Screen 09/17/18 09/17/18 09/17/18 11:40 12:17 12:17 WBC RBC Hgb Hct MCV MCH MCHC RDW Plt Count Seg Neutrophils % Lymphocytes % Monocytes % Eosinophils % Basophils % Absolute Neutrophils Absolute Lymphocytes Absolute Monocytes Absolute Eosinophils Absolute Basophils Carbonic Acid HCO3/H2CO3 Ratio ABG pH ABG pCO2 ABG pO2 ABG HCO3 ABG O2 Saturation ABG Base Excess VBG pH 6.73 L* VBG pCO2 27.2 L VBG HCO3 3.5 L VBG Base Excess -31.3 FiO2 Sodium Potassium Chloride Carbon Dioxide Anion Gap BUN Creatinine Est GFR ( Amer) Est GFR (Non-Af Amer) Glucose Serum Osmolality 360 H Lactic Acid Calcium Total Bilirubin AST ALT Alkaline Phosphatase Ammonia 204.7 H Total Protein Albumin Urine Color Urine Appearance Urine pH Ur Specific [place] Urine Protein Urine Glucose (UA) Urine Ketones Urine Blood Urine Nitrite Ur Leukocyte Esterase Urine WBC (Auto) Urine RBC (Auto) Blood Type Antibody Screen 09/17/18 09/17/18 09/17/18 12:45 12:54 12:54 WBC 24.4 H RBC 3.00 L Hgb 8.9 L Hct 31.6 L MCV 105 H MCH 29.5 MCHC 28.0 L RDW 22.6 H Plt Count 312 Seg Neutrophils % Not Reportable Lymphocytes % Not Reportable Monocytes % Not Reportable Eosinophils % Not Reportable Basophils % Not Reportable Absolute Neutrophils Not Reportable Absolute Lymphocytes Not Reportable Absolute Monocytes Not Reportable Absolute Eosinophils Not Reportable Absolute Basophils Not Reportable Carbonic Acid HCO3/H2CO3 Ratio ABG pH ABG pCO2 ABG pO2 ABG HCO3 ABG O2 Saturation ABG Base Excess VBG pH VBG pCO2 VBG HCO3 VBG Base Excess FiO2 Sodium Potassium Chloride Carbon Dioxide Anion Gap BUN Creatinine Est GFR ( Amer) Est GFR (Non-Af Amer) Glucose Serum Osmolality Lactic Acid Calcium Total Bilirubin AST ALT Alkaline Phosphatase Ammonia Total Protein Albumin Urine Color DARK YELLOW Urine Appearance SLIGHTLY-CLOUDY Urine pH 5.0 Ur Specific [place] 1.017 Urine Protein 30 H Urine Glucose (UA) NEGATIVE Urine Ketones NEGATIVE Urine Blood NEGATIVE Urine Nitrite NEGATIVE Ur Leukocyte Esterase NEGATIVE Urine WBC (Auto) 1 Urine RBC (Auto) 0 Blood Type A POSITIVE Antibody Screen NEGATIVE 09/17/18 15:24 WBC RBC Hgb Hct MCV MCH MCHC RDW Plt Count Seg Neutrophils % Lymphocytes % Monocytes % Eosinophils % Basophils % Absolute Neutrophils Absolute Lymphocytes Absolute Monocytes Absolute Eosinophils Absolute Basophils Carbonic Acid 0.68 L HCO3/H2CO3 Ratio 5:1 ABG pH 6.85 L* ABG pCO2 22.5 L ABG pO2 128.9 H ABG HCO3 3.8 L ABG O2 Saturation 95.3 ABG Base Excess -28.3 VBG pH VBG pCO2 VBG HCO3 VBG Base Excess FiO2 ROOM AIR Sodium Potassium Chloride Carbon Dioxide Anion Gap BUN Creatinine Est GFR ( Amer) Est GFR (Non-Af Amer) Glucose Serum Osmolality Lactic Acid Calcium Total Bilirubin AST ALT Alkaline Phosphatase Ammonia Total Protein Albumin Urine Color Urine Appearance Urine pH Ur Specific [place] Urine Protein Urine Glucose (UA) Urine Ketones Urine Blood Urine Nitrite Ur Leukocyte Esterase Urine WBC (Auto) Urine RBC (Auto) Blood Type Antibody Screen 09/17/18 11:40 Troponin I < 0.012 Impressions: Chest X-Ray 09/17/18 12:08 IMPRESSION: Right lower lobe infiltrate either atelectasis or pneumonia. Head CT 09/17/18 12:10 IMPRESSION: No acute intracranial pathology. EVIDENCE OF ACUTE STROKE: NO. KUB X-Ray 09/17/18 14:02 IMPRESSION: The NG tube has its tip in the distal esophagus. Assessment and Plan - Diagnosis (1) Septic shock Is this a current diagnosis for this admission?: Yes Plan: At the time of admission the patient was markedly hypothermic with a temperature of 87.8 F. He was hypotensive at 79/37 with decreased oxygenation. His pulse ox was 86% on room air and he exhibited increased work of breathing. He also displayed altered mental status. His white blood cell count was elevated at 24.4 with a left shift. The patient was placed on pressor therapy. The workup revealed severe metabolic acidosis with markedly acute on chronic (stage III) kidney failure. Once the patient arrived in the ICU infusion with levo fed was started. This is in addition to marked fluid boluses. Etiologies include the right lower lobe pneumonia as well as the acute kidney injury with severe acidosis. See additional information below. (2) Acute respiratory failure with hypoxia Is this a current diagnosis for this admission?: Yes Plan: The patient required oxygen supplementation for pulse oximetry 86% on room air. Antibiotics were initiated for pneumonia. Intravenous bicarb was admitted for the severe metabolic acidosis. Oxygen by nasal cannula initiated. Will aim for oxygen saturation greater than or equal to 90%. (3) Right lower lobe pneumonia Qualifiers: Pneumonia type: aspiration pneumonia Aspiration pneumonia type: unspecified Qualified Code(s): J69.0 - Pneumonitis due to inhalation of food and vomit Is this a current diagnosis for this admission?: Yes Plan: Right lower lobe pneumonia was identified by x-ray. There was no witnessed vomiting however considering his diminished state and altered mental status aspiration is the most likely etiology. Antibiotics initiated as well as oxygen supplementation to keep saturation greater than 90%. The patient was started on vancomycin and Zosyn. Pharmacy to adjust dosing. (4) Metabolic acidosis Is this a current diagnosis for this admission?: Yes Plan: At the time of admission a venous blood gas revealed a pH of 6.73 with bicarb of 3.5. At the time of arrival in the ICU a repeat blood gas (arterial) revealed a pH of 6.85 with a PCO2 of 22.5, PO2 of 128.9 and a bicarb of 3.8. This in fact was taken on room air. Dr. Brown had initiated bicarb infusion at 30 mEq/h. The patient is also receiving boluses of normal saline. (5) Acute renal failure superimposed on stage 3 chronic kidney disease Qualifiers: Acute renal failure type: with acute tubular necrosis Qualified Code(s): N17.0 - Acute kidney failure with tubular necrosis; N18.3 - Chronic kidney disease, stage 3 (moderate) Is this a current diagnosis for this admission?: Yes Plan: The patient has chronic stage III kidney disease. The combination of infection, severe acidosis and hypotension most likely caused acute tubular necrosis. The patient was discussed with Dr. Brown. The plan is for surgery to insert a temporary dialysis catheter and dialyze the patient emergently. Serum creatinine was 8.18 and the patient's typical serum creatinine is in the 1.7 range. The low blood pressure is problematic. The patient may not tolerate dialysis. (6) Lactic acidosis Is this a current diagnosis for this admission?: Yes Plan: Lactic acid on admission was 18.5. Large volume fluid resuscitation and bicarbonate infusion were initiated. We will monitor serial serum lactic acid levels and adjust treatment accordingly. (7) Hyperkalemia Is this a current diagnosis for this admission?: Yes Plan: On admission the patient's potassium was 5.4. With the multiple liters of IV fluid resuscitation the serum potassium will no doubt dilute down. The patient may need potassium repletion. Hemodialysis also will play a factor. Continue to monitor serum potassium and replete as clinically indicated. (8) Hyperammonemia Is this a current diagnosis for this admission?: Yes Plan: The patient's ammonia level was 204.7. The family states that he has not been drinking recently. This is confirmed by an undetectable serum alcohol level. There is no annotations regarding alcohol abuse in the records that I was able to review. The transaminases are minimal as well. The aggressive fluid resuscitation will dilute out the ammonia significantly. We will continue to monitor and if needed employ lactulose. (9) Hepatic encephalopathy Is this a current diagnosis for this admission?: Yes Plan: This was present on admission. As noted above this was an acute onset today. Multiple factors are contributing including the sepsis, shock, marked metabolic acidosis and infection. We will continue to monitor the patient and look for correctable causes. (10) Coronary artery disease Qualifiers: Coronary Disease-Associated Artery/Lesion type: [place] artery [place] vs. transplanted heart: [place] heart Associated angina: without angina Qualified Code(s): I25.10 - Atherosclerotic heart disease of [place] coronary artery without angina pectoris Is this a current diagnosis for this admission?: Yes Plan: The patient has a history of 2 myocardial infarctions and a total of 7 cardiac stents. When clinically appropriate we will resume his home medication regimen. He did not report any chest discomfort during this admission. In his current altered mental state he is not a good historian. An initial serum troponin was less than 0.012. The initial EKG showed an underlying fibrillation with multiple PVCs. With his history we will monitor his cardiac status and likely obtain serial cardiac studies. Unfortunately with the acute kidney injury he may have mildly elevated troponin levels. (11) Upper GI bleeding Is this a current diagnosis for this admission?: Yes Plan: There is lebron blood coming from the nasogastric tube. There is dried blood in the patient's mouth. Will review the post insertion x-ray and check for placement. We will monitor the patient's hemoglobin and replace with packed red blood cells if clinically indicated. The patient already has an underlying h istory of anemia and with his coronary artery disease I would like to keep the hemoglobin above 9.0. (12) Diabetes mellitus type 2 with complications Qualifiers: Diabetes mellitus technical laboratory asst insulin use: without technical laboratory asst use Qualified Code(s): E11.8 - Type 2 diabetes mellitus with unspecified complications Is this a current diagnosis for this admission?: Yes Plan: Will monitor Accu-Cheks and institute a Humalog sliding scale. Consider checking hemoglobin A1c. When appropriate for a diet we will institute a controlled carbohydrate cardiac diet. (13) Anemia of chronic renal failure, stage 3 (moderate) Is this a current diagnosis for this admission?: Yes Plan: I did call the patient's technical laboratory asst. The patient has a history of iron deficiency. He also has chronic underlying kidney disease. The anemia is most likely a combination of both. As noted above we will monitor his hemoglobin in light of the bright red blood in his nasogastric tube and transfuse when clinically indicated. (14) Cerebrovascular disease Is this a current diagnosis for this admission?: Yes Plan: The patient has a history of frontal lobe stroke. Because of the active bleeding we will hold antiplatelet therapy temporarily. We will try and jose ntain adequate perfusion pressure but the patient is already on levo fed. The CT scan of the head obtained in the emergency department as part of the workup for the altered mental status does not indicate evidence of an old stroke. It most likely was limited. Will discuss with family further during the patient's hospitalization. - Time Time Spent with patient: 90 minutes Medications reviewed and adjusted accordingly: Yes Anticipated discharge: Home - Inpatient Certification Based on my medical assessment, after consideration of the patient's comorbidities, presenting symptoms, or acuity I expect that the services needed warrant INPATIENT care.: Yes I certify that my determination is in accordance with my understanding of Medicare's requirements for reasonable and necessary INPATIENT services [42 CFR 412.3e].: Yes Medical Necessity: Significant Comorbidiites Make Outpatient Treatment Too Risky, Need Close Monitoring Due to Risk of Patient Decompensation, Need For IV Fluids, Need For Continuous Telemetry Monitoring, Need for IV Antibiotics
--- NOTE | 2018-09-17 21:19 | Progress Note ---
Provider Note Provider Note: As they were preparing to insert the dialysis catheter the patient suffered cardiac arrest. A code was called. The patient was without a pulse. CPR was initiated at 4:23 PM. Respiratory therapy continued to oxygenate the patient with a bag valve mask. After 2 minutes of chest compressions there was no detectable pulse. An amp of epinephrine was administered. Chest compressions were resumed. The automated defibrillator pads were placed on the patient. After 3 minutes of compressions there was no detectable pulse. A second amp of epinephrine was administered. Compressions were resumed. After 2-3 minutes of compressions the patient in fact had a weak pulse but it was palpable. He had shallow but spontaneous respirations. Because of the critical nature of the patient's illness as well as for protection of the airway the patient was intubated. The patient was awake enough to resist intubation. 2 mg of Versed was given. After approximately 1 minute a second attempt was made. Visualization was difficult because of bloody secretions and patient movement. The endotracheal tube was placed but it was determined that it was in the esophagus. It was removed and an additional 2 mg of Versed was administered. In addition he was given 10 mg of etomidate. This combination sedated the patient enough for placement of the endotracheal tube. Using a glide scope I was able to visualize the vocal cords. The endotracheal tube was inserted. Placement was confirmed by chest x-ray. We did withdraw the tube approximately 2 cm. Of note, the nasogastric tube in place when the patient arrived in the emergency department was in fact in the patient's esophagus and not the stomach. This tube was removed and a new nasogastric tube was placed. The x-ray for endotracheal tube placement also confirmed that the nasogastric tube was in the stomach. During the entire procedure the patient's oxygenation was monitored closely. It stayed above 90% by using the bag valve mask. Once placement was confirmed the patient was placed on a ventilator. SIMV mode was initiated with a tidal volume of 500, respiratory rate of 18, 5 of PEEP and 10 of pressure support. FiO2 was 100%. After several minutes a another blood gas was performed. Unfortunately the patient was even more acidotic with a pH of 6.7 and a bicarb of 4.4. At this point his levo fed was at the maximum dose and vasopressin was initiated. Due to the physiologic stimulation of resuscitation as well as the epinephrine the patient's blood pressure in fact improved. This was relatively short-lived and the vasopressin needed to be increased as well. The patient was observed for approximately 15-20 minutes. The patient appeared to stabilize. A total of 40 minutes was dedicated to critical care time.
--- NOTE | 2018-09-17 21:36 | ADVANCED CARE ---
- Diagnosis (1) Septic shock Diagnosis Current: Yes (2) Acute respiratory failure with hypoxia Diagnosis Current: Yes (3) Right lower lobe pneumonia Diagnosis Current: Yes (4) Metabolic acidosis Diagnosis Current: Yes (5) Acute renal failure superimposed on stage 3 chronic kidney disease Diagnosis Current: Yes (6) Lactic acidosis Diagnosis Current: Yes (7) Hyperkalemia Diagnosis Current: Yes (8) Hyperammonemia Diagnosis Current: Yes (9) Hepatic encephalopathy Diagnosis Current: Yes (10) Coronary artery disease Diagnosis Current: Yes (11) Upper GI bleeding Diagnosis Current: Yes (12) Diabetes mellitus type 2 with complications Diagnosis Current: Yes (13) Anemia of chronic renal failure, stage 3 (moderate) Diagnosis Current: Yes (14) Cerebrovascular disease Diagnosis Current: Yes Attendance: The family had not had a chance to see the patient after he transferred to the ICU because of the cardiac arrest. The patient's daughter as well as his sister and aunt were in the waiting room. The patient's primary nurse accompanied me to the family discussion. They admitted that they overheard the overhead page for the cardiac arrest. They suspected that it was related to the patient. Resuscitation Status: Full Code Discussion: I sat with the family and explained the current status. We reviewed his blood work and the severity of his illness. We discussed his past medical history and its relevance to his current situation. With the patient's history of coronary artery disease it is likely that the cardiac arrest caused myocardial damage. The patient requires to vasopressors and his map is still under 60. His heart rate is irregular as well. We reviewed the severe acidotic state and the severity of the current renal status. I explained that our plan was to institute emergent hemodialysis however the cardiac arrest may make this difficult to pursue. I made them aware also of his intubated status. Second discussion After reassessing the patient returned to the ICU waiting room. The same people were in attendance. The ICU nurse remained in the ICU to attend to the patient. I informed the family that his blood pressure is not responding to the vasopressors as we had hoped. His heart rhythm was irregular with PVCs as well. He was tolerating mechanical ventilation. I informed the family that when I reassessed the patient he was clearly steadily but slowly deteriorating. I reviewed the plan as described above. We will continue aggressive care short of resuscitation. If the patient did arrest again there would be no intervention. At this point, based on my reassessment, the family requested that we continue to do everything until the patient's mother arrived. Once the patient's mother arrived they would discuss the current situation and likely opt for comfort measures only. I did review the treatment plan if that were to take place. I explained that I would give IV analgesia and sedation. We would extubate the patient. We will discontinue all IV fluids and vasopressors. If there was any indication of air hunger, pain or agitation the patient would have additional medication available. The family requested to visit with the patient briefly. I did make them aware of his current condition. Third discussion When the patient's mother as well as several other family members were present. I reentered the room. They informed me that they were going to change his status to comfort care. I explained that they could spend as much time at the patient as they wished. I did warn them that if the patient arrested we would ask them to leave the room despite the fact that our intervention would be minimal. They understood and agreed. Care Planning Goals: In light of his complex medical history the family asked what I felt about his prognosis. I informed them that at this point he was tenuous. I explained that I felt his prognosis was extremely poor. We then discussed potential options. Because the family would not want the patient to suffer needlessly nor require placement in a long-term nursing facility it was decided that if the patient arrested we would not attempt resuscitation. The patient was too unstable to consider transport to another facility. In his current state he would not tolerate hemodialysis and therefore this is not an option in the treatment plan. We reviewed comfort only as an option. There was mixed emotion. They asked me what I would do if it were my family member. It was decided that we would try to stabilize the patient with volume resuscitation, reversing the acidosis, supporting his blood pressure and utilizing mechanical ventilation. As noted above if the patient were to arrest again they did not want cardiac resuscitation. If efforts were proving futile then they will consider comfort measures only. Excuse myself to return to the ICU and assess the patient. Document(s) Completed: None Time Spent: 65 minutes
--- NOTE | 2018-09-17 21:45 | Death Summary ---
Summary Date : 09/17/18 Time of :: 19:20 Resuscitation Status: Comfort Measures Only - Final Diagnosis (1) Septic shock Is this a current diagnosis for this admission?: Yes (2) Acute respiratory failure with hypoxia Is this a current diagnosis for this admission?: Yes (3) Right lower lobe pneumonia Is this a current diagnosis for this admission?: Yes (4) Metabolic acidosis Is this a current diagnosis for this admission?: Yes (5) Acute renal failure superimposed on stage 3 chronic kidney disease Is this a current diagnosis for this admission?: Yes (6) Lactic acidosis Is this a current diagnosis for this admission?: Yes (7) Hyperkalemia Is this a current diagnosis for this admission?: Yes (8) Hyperammonemia Is this a current diagnosis for this admission?: Yes (9) Hepatic encephalopathy Is this a current diagnosis for this admission?: Yes (10) Coronary artery disease Is this a current diagnosis for this admission?: Yes (11) Upper GI bleeding Is this a current diagnosis for this admission?: Yes (12) Diabetes mellitus type 2 with complications Is this a current diagnosis for this admission?: Yes (13) Anemia of chronic renal failure, stage 3 (moderate) Is this a current diagnosis for this admission?: Yes (14) Cerebrovascular disease Is this a current diagnosis for this admission?: Yes Hospital Course:: During the evaluation in the emergency department the patient exhibited the hypotension. The plan was to institute vasopressors. I requested that the patient be brought to the ICU so that we could institute all measures at that time. The patient was assessed upon arrival to the intensive care unit. His blood pressure was low and levo fed was initiated. The levo fed reached its maximum dose fairly quickly. We then initiated vasopressin. The patient was receiving bicarbonate infusion of 30 mEq an hour. The infusion was running at 200 mL an hour. In addition the patient was receiving normal saline. At approximately 4:25 PM the patient suffered cardiac arrest. He was pulseless and without spontaneous respirations. CPR was initiated. Please see provider note for details of the resuscitation. The resuscitation was successful. The patient was intubated as part of the resuscitation. Multiple detailed and lengthy discussions were held with the family from the initial discussion after the cardiac arrest as well as via several updates as described in the advance care planning note. The family decided to move to comfort care only once the patient's mother and several relatives were able to make it to the hospital. Once the family was gathered and time was spent with the patient, they indicated that they would like to institute terminal care measures. The patient was given intravenous morphine. He was still somewhat sedate from the Versed used for intubation. The patient was extubated and all infusions were discontinued. Family was then brought back to the bedside. At 7:20 PM I was summoned to the bedside. The patient had . I examined the patient. There were no heart sounds or spontaneous respirations. The pupils were fixed and dilated. Time of was recorded as 7:20 PM on September 17, 2018. The certificate was completed at that time.
[2018-09-17] MEDS ORDERED: PANTOPRAZOLE SODIUM 40 MG VIAL IV SCH (22:00)
--- NOTE | 2018-09-17 23:05 | EKG REPORT ---
SEVERITY:- ABNORMAL ECG - ATRIAL FLUTTER WITH4:1 CONDUCTION NONSPECIFIC INTRAVENTRICULAR CONDUCTION DELAY MINIMAL ST DEPRESSION, ANTEROLATERAL LEADS : Confirmed by: Monica Douglas 17-Sep-2018 23:05:20
--- NOTE | 2018-09-17 23:05 | EKG REPORT ---
SEVERITY:- ABNORMAL ECG - ATRIAL FIBRILLATION VENTRICULAR PREMATURE COMPLEX NONSPECIFIC INTRAVENTRICULAR CONDUCTION DELAY : Confirmed by: Monica Douglas 17-Sep-2018 23:05:40
--- NOTE | 2018-09-20 08:50 | PDOC CONSULTATION ---
Consultation Consult Date: 09/17/18 Consult reason:: CHIKI with severe metabolioc acidosis. History of Present Illness Admission Date/PCP: 09/17/18 13:55 JACKSON WILLINGHAM MD History of Present Illness: KAEL FIGUEROA is a 57 year old male Testing testing with a past medical history that is significant for complicated diabetes mellitus, hypertension, CKD stage III/IV with base creatinine of 1.5-1.8, CAD, CHF was admitted with a history of altered mental status.Patient has become quite moribund when I saw him initially in the ER and later in the ICU. The history was therefore gleaned from his sister who is his main caregiver. Extensive discussions were done with the treating ER physician Dr. Olivera. Patient was found to be hypotensive and has been begun on rapid fluid resuscitation along with infusion of bicarbonate drip. So far he has had imaging studies including CT scan which was negative for any acute ischemic injury. Patient moved from [place] to be living with his sister ever since he had a stroke which resulted him with certain amount of latent mental and physical deficits. According to the sister the patient has had a cataract surgery approximately 2 weeks ago which was complicated. Since then he has lost his appetite and was drinking Ensure now and then. Over the last day or so he began to become progressively weak with confusional state stage. EMS was called and they found him to be hypoglycemic which was corrected immediately. However he was not recovering and he was brought to the ER. Evaluations in the ER has revealed that the patient was in acute kidney shutdown with severe metabolic aci dosis. Imaging studies shows he has possible pneumonia. No history to indicate any toxic alcohol intake according to the sister who keeps a very close eye on the patient. Labs and medications were reviewed at length with the patient nurse and the ICU as well as with Dr. Olivera.Further discussions were done with Dr. Suarez in the ICU. Past Medical History Cardiac Medical History: Reports: Coronary Artery Disease - Status post 7 stents placed, last on June 2016, Hyperlipidemia, Hypertension-primary, Myocardial Infarction Pulmonary Medical History: Reports: Chronic Obstructive Pulmonary Disease (COPD) Denies: Asthma, Bronchitis Neurological Medical History: Denies: Seizures Endocrine Medical History: Reports: Diabetes Mellitus Type 2 Renal/ Medical History: Reports: Chronic Kidney Disease Stage III Denies: Benign Prostatic Hyperplasia GI Medical History: Denies: Hepatitis, Hiatal Hernia Musculoskeltal Medical History: Reports: Gout Denies: Arthritis Past Surgical History Past Surgical History: Reports: Appendectomy, Cardiac Catheterization, Orthopedic Surgery - toe amputation x2 Denies: Pacemaker Social History Smoking Status: Never Smoker Frequency of Alcohol Use: None Hx Recreational Drug Use: No Drugs: None Hx Prescription Drug Abuse: No - Advance Directive Resuscitation Status: Full Code Family History Parental Family History Reviewed: Yes - Negative for ESRD Children Family History Reviewed: No Sibling(s) Family History Reviewed.: No Medication/Allergy Home Medications: Acetazolamide [Diamox 250 mg Tab] 250 mg PO QID 09/17/18 Atorvastatin Calcium [Lipitor 80 mg Tablet] 80 mg PO QHS 09/17/18 Carvedilol [Coreg 12.5 mg Tablet] 12.5 mg PO DAILY 09/17/18 Colchicine [Colcrys 0.6 mg Tablet] 0.6 mg PO DAILY 09/17/18 Ezetimibe [Zetia 10 mg Tablet] 10 mg PO DAILY 09/17/18 Febuxostat [Uloric 80 mg Tablet] 80 mg PO DAILY 09/17/18 Ferrous Sulfate [Feosol 325 mg Tablet] 325 mg PO BID 09/17/18 Gabapentin [Neurontin 300 mg Capsule] 300 mg PO Q8 09/17/18 Levothyroxine Sodium [Synthroid 0.025 mg Tablet] 0.025 mg PO Q6AM 09/17/18 Sacubitril/Valsartan [Entresto 49 mg/51 mg Tablet] 1 tab PO BID 09/17/18 Torsemide [Demadex 20 mg Tablet] 20 mg PO Q12 09/17/18 Allergies/Adverse Reactions: simvastatin [From Zocor] Allergy (Severe, Verified 08/31/18 13:07) RASH lisinopril Adverse Reaction (Intermediate, Verified 08/31/18 13:07) COUGH Review of Systems ROS unobtainable: Due to mental status Review of Systems: However extensive discussions were done with his sister who is the main caregiver. There was no history of any headaches or apparent seizures. No history of any fever chills. No history of any diarrhea nausea vomiting.No history of taking any toxic alcohols or salicylates as there is no such products in the house. No history of any chest pain palpitations shortness of breath. No acute abdominal pains no nausea vomiting. No history of any focal deficits that she could see. Apparent history of any head injury. No history of any possible toxic alcohol or salicylate ingestions. Apparently there is no such things in the house. Physical Exam Vital Signs: Temp Pulse Resp BP Pulse Ox 87.8 F L 67 16 64/43 L 100 09/17/18 12:49 09/17/18 12:49 09/17/18 12:49 09/17/18 12:49 09/17/18 12:49 Intake & Output 09/16/18 09/17/18 09/18/18 06:59 06:59 06:59 Intake Total 5000 Balance 5000 Weight 69.2 kg General appearance: PRESENT: disheveled, mild distress - Poorly responsive to questions as he is quite moribund. He is moving all 4 limbs. He is quite disheveled. Exam: Initially when I saw him in the ER between 12 and 1:00 in the afternoon, the patient was stuporous but awake and some responsive. Hemodynamically he was unstable as his blood pressures were in the 80-90 systolic and he was on nasal cannula. At that time examination was unremarkable and his chest and abdomen. I then see him after he has been transferred to the ICU when the patient is more moribund as he has become more hemodynamically unstable. IV fluids are still going and he is in the process of being started on Levophed. call or contact centre team leader surgeon has been called but yet to have inserted a hemodialysis catheter.Extensive discussions were done with the treating nurses in the ICU and later with his sister at bedside. Eye exam: PRESENT: EOMI. ABSENT: PERRLA - His left pupil was normal at 3 to 5-4 mm but his left pupil is dilated between 4 and 5 mm. This could have been diabetic he had recent surgery for cataracts.He might be putting eyedrops. Ear exam: PRESENT: normal external ear exam Mouth exam: PRESENT: neck supple. ABSENT: moist Neck exam: ABSENT: lymphadenopathy, meningismus, tenderness, thyromegaly, tracheal deviation Respiratory exam: PRESENT: clear to auscultation xander, decreased breath sounds. ABSENT: crackles Cardiovascular exam: PRESENT: +S1, +S2 GI/Abdominal exam: PRESENT: normal bowel sounds, soft. ABSENT: distended, organomegaly, tenderness Extremities exam: ABSENT: pedal edema Neurological exam: PRESENT: altered Skin exam: PRESENT: dry. ABSENT: cyanosis, erythema, mottled, rash Results Laboratory Results: 09/17/18 12:54 09/17/18 11:40 09/17/18 09/17/18 09/17/18 11:40 11:40 11:40 WBC Cancelled RBC Cancelled Hgb Cancelled Hct Cancelled MCV Cancelled MCH Cancelled MCHC Cancelled RDW Cancelled Plt Count Cancelled Seg Neutrophils % Cancelled Lymphocytes % Cancelled Monocytes % Cancelled Eosinophils % Cancelled Basophils % Cancelled Absolute Neutrophils Cancelled Absolute Lymphocytes Cancelled Absolute Monocytes Cancelled Absolute Eosinophils Cancelled Absolute Basophils Cancelled VBG pH VBG pCO2 VBG HCO3 VBG Base Excess Sodium 147.4 H Potassium 5.4 H Chloride 101 Carbon Dioxide < 5 L* Anion Gap Not Reportable BUN 90 H Creatinine 8.18 H Est GFR ( Amer) 8 L Est GFR (Non-Af Amer) 7 L Glucose 121 H Serum Osmolality Lactic Acid 18.5 H Calcium 9.7 Total Bilirubin 0.7 AST 27 ALT < 6 L Alkaline Phosphatase 78 Ammonia Total Protein 7.0 Albumin 4.0 Urine Color Urine Appearance Urine pH Ur Specific [place] Urine Protein Urine Glucose (UA) Urine Ketones Urine Blood Urine Nitrite Ur Leukocyte Esterase Urine WBC (Auto) Urine RBC (Auto) Blood Type Antibody Screen 09/17/18 09/17/18 09/17/18 11:40 12:17 12:17 WBC RBC Hgb Hct MCV MCH MCHC RDW Plt Count Seg Neutrophils % Lymphocytes % Monocytes % Eosinophils % Basophils % Absolute Neutrophils Absolute Lymphocytes Absolute Monocytes Absolute Eosinophils Absolute Basophils VBG pH 6.73 L* VBG pCO2 27.2 L VBG HCO3 3.5 L VBG Base Excess -31.3 Sodium Potassium Chloride Carbon Dioxide Anion Gap BUN Creatinine Est GFR ( Amer) Est GFR (Non-Af Amer) Glucose Serum Osmolality 360 H Lactic Acid Calcium Total Bilirubin AST ALT Alkaline Phosphatase Ammonia 204.7 H Total Protein Albumin Urine Color Urine Appearance Urine pH Ur Specific [place] Urine Protein Urine Glucose (UA) Urine Ketones Urine Blood Urine Nitrite Ur Leukocyte Esterase Urine WBC (Auto) Urine RBC (Auto) Blood Type Antibody Screen 09/17/18 09/17/18 09/17/18 12:45 12:54 12:54 WBC 24.4 H RBC 3.00 L Hgb 8.9 L Hct 31.6 L MCV 105 H MCH 29.5 MCHC 28.0 L RDW 22.6 H Plt Count 312 Seg Neutrophils % Not Reportable Lymphocytes % Not Reportable Monocytes % Not Reportable Eosinophils % Not Reportable Basophils % Not Reportable Absolute Neutrophils Not Reportable Absolute Lymphocytes Not Reportable Absolute Monocytes Not Reportable Absolute Eosinophils Not Reportable Absolute Basophils Not Reportable VBG pH VBG pCO2 VBG HCO3 VBG Base Excess Sodium Potassium Chloride Carbon Dioxide Anion Gap BUN Creatinine Est GFR ( Amer) Est GFR (Non-Af Amer) Glucose Serum Osmolality Lactic Acid Calcium Total Bilirubin AST ALT Alkaline Phosphatase Ammonia Total Protein Albumin Urine Color DARK YELLOW Urine Appearance SLIGHTLY-CLOUDY Urine pH 5.0 Ur Specific [place] 1.017 Urine Protein 30 H Urine Glucose (UA) NEGATIVE Urine Ketones NEGATIVE Urine Blood NEGATIVE Urine Nitrite NEGATIVE Ur Leukocyte Esterase NEGATIVE Urine WBC (Auto) 1 Urine RBC (Auto) 0 Blood Type A POSITIVE Antibody Screen NEGATIVE 09/17/18 11:40 Troponin I < 0.012 Impressions: Chest X-Ray 09/17/18 12:08 IMPRESSION: Right lower lobe infiltrate either atelectasis or pneumonia. Head CT 09/17/18 12:10 IMPRESSION: No acute intracranial pathology. EVIDENCE OF ACUTE STROKE: NO. KUB X-Ray 09/17/18 14:02 IMPRESSION: The NG tube has its tip in the distal esophagus. Assessment & Plan - Diagnosis (1) Septic shock Plan: The patient is in septic shock from his pneumonia and it has been compounded by his metformin and the fact that he may also have been taking Diamox. Other differential one has to consider includes toxic alcohols, salicylates. However the patient's sisters are very adamant that he has not consumed any of those because they keep a very close eye on him and none of the bottles of such were found anywhere around him in the house. Patient is extremely critical with his lactic acid of 18 and is being hemodynamically unstable. Massive amounts of fluid resuscitation has been done along with start him on pressors. Given his severe degree of metabolic acidosis I want to start him on hemodialysis. However patient is unstable and hemodialysis access catheter has not yet been placed.Apparently on-call surgeon has been notified. Discussions were done extensively with Dr. Olivera in the ER and later with Dr. Reynolds in the ICU.Given his degree of metabolic acidosis prognosis is very poor. (2) Lactic acidosis Plan: His lactic acid is over 18. He is an extremely severe degree of metabolic aci dosis. As mentioned earlier is probably a combination of septic shock from pneumonia as well as from being on metformin plus possible Diamox. Express the severity of acidosis and the need to start on dialysis as quickly as possible. On-call surgeon has been notified to place dialysis access as soon as possible.Meanwhile I will ordered 3 amps of sodium bicarbonate to be given as soon as possible. He has already been started on a bicarbonate drip from the ER as well.Grave and poor prognosis. (3) Metabolic acidosis Plan: Secondary to septic shock plus metformin's plus possible Diamox. Poor prognosis. Needs to be dialyzed immediately but patient hemodynamically unstable. Fluid resuscitation and pressors ongoing and surgeon has been notified for access placement. (4) Hyperkalemia Plan: Mild. Monitor. (5) Pneumonia Qualifiers: Pneumonia type: due to unspecified organism Laterality: unspecified laterality Lung location: unspecified part of lung Qualified Code(s): J18.9 - Pneumonia, unspecified organism Plan: Antibiotics to be initiated. (6) Acute renal failure superimposed on stage 3 chronic kidney disease Qualifiers: Acute renal failure type: with acute tubular necrosis Qualified Code(s): N17.0 - Acute kidney failure with tubular necrosis; N18.3 - Chronic kidney disease, stage 3 (moderate) Plan: Baseline creatinine 1.5 presents with AK I with severe metabolic acidosis from a combination of lactic acidosis and drugs in the form of metformin and possible Diamox. Needs immediate dialysis. However patient hemodynamically unstable and fluid resuscitation and pressors are being initiated. Overall poor prognosis. (7) Diabetes mellitus type 2 with complications Qualifiers: Diabetes mellitus snf insulin use: without local intermodal truck driver use Qualified Code(s): E11.8 - Type 2 diabetes mellitus with unspecified complications Plan: Monitor. (8) Coronary artery disease Qualifiers: Coronary Disease-Associated Artery/Lesion type: [place] artery [place] vs. transplanted heart: [place] heart Associated angina: without angina Qualified Code(s): I25.10 - Atherosclerotic heart disease of [place] coronary artery without angina pectoris Is this a current diagnosis for this admission?: Yes Plan: He has had CAD with multiple stent placements.
== END 2018-09-17 19:20 | disposition left against medical advice (07) | DRG 871 ==
LOC: ER 11:26 → EH 13:55 → ICU 14:52
PROVIDERS: ADMIT Hospitalist; ATTEND Internal Medicine
PROC: 0BH17EZ Insertion of Endotracheal Airway into Trachea, Via Natural or Artificial Opening (ICD-10-PCS; principal; 2018-09-17)
PROC: 5A1935Z Respiratory Ventilation, Less than 24 Consecutive Hours (ICD-10-PCS; 2018-09-17)
PROC: 06H033Z Insertion of Infusion Device into Inferior Vena Cava, Percutaneous Approach (ICD-10-PCS; 2018-09-17)
DX: A41.9 Sepsis, unspecified organism (principal); R65.21 Severe sepsis with septic shock; J18.9 Pneumonia, unspecified organism; J96.01 Acute respiratory failure with hypoxia; G93.41 Metabolic encephalopathy; N17.9 Acute kidney failure, unspecified; I13.0 Hypertensive heart and chronic kidney disease with heart failure and stage 1 through stage 4 chronic kidney disease, or unspecified chronic kidney disease; K92.2 Gastrointestinal hemorrhage, unspecified; Z51.5 Encounter for palliative care; E87.5 Hyperkalemia; I11.0 Hypertensive heart disease with heart failure; I46.9 Cardiac arrest, cause unspecified; E11.22 Type 2 diabetes mellitus with diabetic chronic kidney disease; N18.3 Chronic kidney disease, stage 3 (moderate); M10.9 Gout, unspecified; D63.1 Anemia in chronic kidney disease; D50.9 Iron deficiency anemia, unspecified; K72.90 Hepatic failure, unspecified without coma; E78.5 Hyperlipidemia, unspecified; J44.9 Chronic obstructive pulmonary disease, unspecified; F17.210 Nicotine dependence, cigarettes, uncomplicated; I25.2 Old myocardial infarction; Z95.5 Presence of coronary angioplasty implant and graft; Z90.49 Acquired absence of other specified parts of digestive tract; Z79.899 Other long term (current) drug therapy; Z88.8 Allergy status to other drugs, medicaments and biological substances; I69.30 Unspecified sequelae of cerebral infarction; Z89.429 Acquired absence of other toe(s), unspecified side
CPT/HCPCS: 36415; 51702; 70450; 71045; 74018; 80053; 80307; 81001; 82140; 82693; 82803; 82962; 83605; 83735; 83930; 84100; 84484; 84600; 85025; 85610; 86850; 86900; 86901; 87040; 87086; 93005; 93010; 94660; 96361; 96365; 96375; 99291; 99292; C1751; J0171; J0610; J2250; J2270; J2543; J3370; J3490; J7030; J7060